=== PATIENT | male | born 1970 | race African-American/Black ===

== ENCOUNTER 2024-02-22 23:26 | Emergency (ER) | payer BC, SELFPAY ==
[2024-02-22 23:46] VITALS: BP 185/121; PULSE 80; RESP 18; TEMP 36.8; O2SAT 96; BMI 35.7
--- NOTE | 2024-02-23 | CRLHL7_ITS ---
For Patients: As a result of the Cures Act, medical imaging exams and procedure reports are released immediately into your electronic medical record. You may view this report before your referring provider. If you have questions, please contact your health care provider. Indication: Left-sided rib pain. Technique: Single PA view of the chest with AP and oblique views of the left ribs. Comparison: Chest x-ray 11/15/2022. Findings: The heart is not abnormally enlarged. The trachea is midline. No confluent airspace opacity. No pleural effusion or pneumothorax. No acute osseous abnormality. No acute rib fracture. Impression: No acute osseous or cardiopulmonary abnormality. Dictated by Nazario Gupta MD @ 02/23/2024 1:12:13 AM (Electronically Signed)
[2024-02-23] MEDS: KETOROLAC 30 MG/ML inj IM (01:04)
--- OUTSIDE RECORDS SUMMARY | 2024-02-23 01:05 | XMS_ITS | Patient Health Record ---
Author Organization [facility] [employer] [employer] [facility] - Primary Address [address] [place] [phone] Care Team Providers Care Entry Level Paralegal Name Role Phone Different, PCP Primary Care Provider Unavailabl e ALLERGIES Allergen (clinical drug ingredient) Drug/Non Drug Allergy documented on EMR Reaction Allergy Type Onset Date Status lisinopril lisinopril coughing Drug Allergy Activ e REASON FOR REFERRAL No Information MEDICATIONS Medication SIG (Take, Route, Fr equency, Duration) Notes Start Date End Date Status Lidocaine Viscous 2% SWISH AND SPIT 10 M L EVERY 4 HOURS NEEDED FOR SORE THROAT for 2 Active spironolactone 25 mg TAKE 1 2 (ONE HALF) TABLET BY MOUTH ONCE DAILY for 30 Active carvedilol 12.5 mg TAKE 1 TABLET BY SIVA TH TWICE DAILY for 30 Active amLODIPine 10 mg 1 tab(s) orally once a day for 30 day(s) Active Mirapex 1.5 mg 1 tab(s) orally 2 at [facility] Active gabapentin 300 mg TAKE 1 CAPSULE BY MO [facility] AT BEDTIME FOR RESTLESS LEGS for 30 Active furosemide 20 mg TAKE 2 TABLETS BY MO UT ONCE DAILY for 30 Active omeprazole 20 mg TAKE 1 CAPSULE BY MO UT ONCE DAILY BEFORE A MEAL for 30 Activ e SOCIAL HISTORY Tobacco Use: Social History Observation Description Date Details (start date - stop date) Current Smoker NA - NA Sex Assigned At : Social History Observation Description Sex Assigned At Unknown Smoking Question Answer Notes Are you a: current smoker How often do you smoke cigarettes? every day How many cigarettes a day do you smoke? 6-10 How soon after you wake up d o you smoke your first cigarette? within 5 min Are you interested in quitting? Thinking about q uitting PROBLEMS Problem Type ICD Code Onset Dates Problem Status W/U Status Risk SNOMED Code Notes Problem Essential (primary) hypertension (I10) Active confirmed Essential hypertension (91744679) Problem Restless legs syndrome (G25.81) Active confirmed Restless l egs syndrome (77862428) Problem Nicotine dependence, cigarettes, uncomplicated (F17.210) Active confirmed Tobacco user (980262147) Problem Chronic pain syndrome (G89.4) Active confirmed Chronic valeriano n syndrome (774073023) PLAN OF TREATMENT No Information Insurance Providers Payer Name Payer Address Payer Phone Subscriber Number Group Number Insured Name Patient Relationship to Insured Coverage Start Date Coverage End Date BCBS BP [place] [address] [address] [place] [address] [id number] [facility] Richard Bonilla Self - patient is the insured MEDICAL (GENERAL) HISTORY Medical History History ICD Code chronic pain Anxiety arthritis RLS Surgical History Surgery Date(Month/Year)
--- OUTSIDE RECORDS SUMMARY | 2024-02-23 01:05 | XMS_ITS | Clinical Summary ---
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 Sumatriptan Rash 10/29/2008 Medications Medication Sig Dispensed Refills Start Date End Date Status gabapentin (NEURONTIN) 600 MG tabletIndications:Res tless legs syndrome Take 0.5 tablets (300 mg total) by mouth 3 (three) times a day 90 tablet 2 12/12/2022 Active Additional Information Patient taking differently: 900 mgOralDaily, Reported on 06/29/2023 amLODIPine (NORVASC) 10 MG tabletIndications:Yogesh ign essential hypertension Take 1 tablet (10 mg total) by mouth 1 (one) time each day 30 tablet 1 06/29/2023 5 Active aspirin 81 MG EC tabletIndications:Car diomyopathy, unspecified type (HCC) Take 1 tablet (81 mg total) by mouth 1 (one) time each day 30 tablet 1 06/29/2023 5 Active atorvastatin (LIPITOR) 40 MG tabletIndications:Car diomyopathy, unspecified type (HCC) Take 1 tablet (40 mg total) by mouth every night 30 tablet 1 06/29/2023 5 Active carvedilol (COREG) 25 MG tabletIndications:Yogesh ign essential hypertension Take 1 tablet (25 mg total) by mouth 2 (two) times a day with meals 60 tablet 1 06/29/2023 5 Active EPINEPHrine (EpiPen 2-Trey) 0.3 MG/0.3ML injection syringeIndications:Hi story of anaphylactic shock due to insect sting Inject 0.3 mL (0.3 mg total) into the thigh if needed for anaphylaxis. Call 911 after use. 2 each 06/29/2023 Active esomeprazole (NexIUM) [address] capsuleIndications:Ga stroesophageal reflux disease, unspecified whether esophagitis present Take 1 capsule (40 mg total) by mouth 1 (one) time each day 30 capsule 1 06/29/2023 5 Active famotidine (PEPCID) 40 MG tabletIndications:Gas troesophageal reflux disease, unspecified whether esophagitis present Take 1 tablet (40 mg total) by mouth 1 (one) time each day 30 tablet 1 06/29/2023 5 Active fexofenadine (DEEPA) 180 MG tabletIndications:All ergic rhinitis, unspecified seasonality, unspecified trigger Take 1 tablet (180 mg total) by mouth 1 (one) time each day 30 tablet 1 06/29/2023 5 Active furosemide (LASIX) 20 MG tabletIndications:Car diomyopathy, unspecified type (HCC) Take 2 tablets (40 mg total) by mouth 1 (one) time each day 60 tablet 1 06/29/2023 5 Active losartan (COZAAR) 25 MG tabletIndications:Yogesh ign essential hypertension Take 1 tablet (25 mg total) by mouth 1 (one) time each day 30 tablet 1 06/29/2023 5 Active Pramipexole Dihydrochloride ER 2.25 MG tablet sustained-release 24 hourIndications:Restl ess legs syndrome Take 2.25 mg by mouth at bed time 30 tablet 1 06/29/2023 5 Active rizatriptan MOTORSPORTS TECHNICIAN (MAXALT-MOTORSPORTS TECHNICIAN) 10 MG dispersible tabletIndications:Sukh madeleine without status migrainosus, not intractable, unspecified migraine type Take 1 tablet (10 mg total) by mouth 1 (one) time if needed for migraine 9 tablet 06/29/2023 Active spironolactone (ALDACTONE) 25 MG tabletIndications:Yogesh ign essential hypertension Take 1 tablet (25 mg total) by mouth 1 (one) time each day 30 tablet 1 06/29/2023 5 Active nicotine polacrilex (Nicorette) 4 MG gumIndications:Nicoti ne abuse Chew 1 each (4 mg total) if needed for smoking cessation Cinnamon 100 each 1 06/29/2023 Active mometasone (NASONEX) 50 MCG/ACT nasal sprayIndications:Jim rgic rhinitis, unspecified seasonality, unspecified trigger Administer 2 sprays into each nostril 1 (one) time each day 17 g 1 07/12/2023 Active albuterol HFA (Ventolin HFA) 108 (90 Base) MCG/ACT inhalerIndications:Al lergic rhinitis, unspecified seasonality, unspecified trigger Inhale 2 puffs every 4 (four) hours if needed for wheezing or shortness of breath 18 g 1 07/12/2023 5 Active Active Problems Problem Noted Date Diagnosed Date Allergic rhinitis 06/29/2023 Gastroesophageal reflux disease 06/29/2023 Gasping for breath 06/29/2023 Snoring 06/29/2023 Encounter for other administrative examinations 06/29/2023 Nicotine abuse 06/29/2023 Routine screening for STI (sexually transmitted infection) 06/29/2023 Immunization due 06/29/2023 Left wrist pain 06/29/2023 Encounter for screening for malignant neoplasm o f colon 06/29/2023 Nonobstructive atherosclerosis of coronary arter y 12/14/2022 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 History reported by patient's significant other - unknown cause - diagnosed at [facility]. HTN (hypertension) 12/14/2010 Migraine headache 12/14/2010 Nephrolithiasis 12/14/2010 Restless legs syndrome 12/14/2010 Resolved Problems Problem Noted Date Diagnosed Date Resolved Date Acute systolic heart failure 06/21/2017 07/18/2021 Immunizations Name Administration Dates Next Due COVID-19, mRNA, LNP-s, PF, caroline-succrose, 30mcg/0.3mL, COMIRNATY Ages 12+ 06/29/2023 H1N1 All Forms 05/31/2009 H1N1 Inj 05/31/2009 INFLUENZA QUADRIVALENT MDV (IM) 06/29/19 24,02/28/2019,06/17/2017,2014 Influenza, Split Virus, Triv alent, Preservative 05/31/2009 Influenza, Trivalent, PF 05/31/2009 Influenza, Unspecified 02/28/2019,06/17/2017, PPD Test 07/18/2021 Pneumococcal Conjugate PCV20 07/18/2023 SARS-COV-2 (COVID-19) vaccin e, vector non-replicating, recombinant spike protein- Ad26, preservative free, 0.5mL (Roll20) 08/11/2020 Td 01/19/2007 Tdap 08/09/2017 Zoster Recombinant 07/18/2023,08/04/2021 Family History Relation Status Comments Brother 1 Brother 2 Brother 3 Daughter 1 Alive Daughter 2 Alive Daughter 3 Alive Daughter 4 Alive Daughter 5 Alive Father Mother Sister 1 Alive Sister 2 Alive Sister 3 Alive Son 1 Alive Son 2 Alive Son 3 Alive Son 4 Alive Social History Tobacco Use Types Packs/Day Years Used Date Smoking Tobacco: Every Day Cigarettes Smokeless Tobacco: Never Tobacco Cessation:Ready to Q uit: Yes; Counseling Given: Yes Alcohol Use Standard Drinks/Week Comments Not Currently 0 (1 standard drink = 0.6 oz pur e alcohol) Humiliation, Afraid, Rape, and Kick questionnair e Answer Date Recorded Within the last year, have y ou been afraid of your partner or ex-partner? No 06/29/2023 Within the last year, have y ou been humiliated or emotionally abused in other ways by your partner or ex-partner? No Within the last year, have y ou been kicked, hit, slapped, or otherwise physically hurt by your partner or ex-partner? No 06/29/2023 Within the last year, have y ou been raped or forced to have any kind of sexual activity by your partner or ex-partner? No 06/29/2023 Social Connection and Isolation Panel [NHANES] A nswer Date Recorded In a typical week, how many times do you talk on the phone with family, friends, or neighbors? Three times a week 06/29/19 How often do you get togethe r with friends or relatives? Once a week 06/29/2023 How often do you attend chur or church services? 1 to 4 times per year 06/29/2023 Do you belong to any clubs o r organizations such as jainism groups, unions, fraternal or athletic groups, or school groups? Yes 06/29/2023 How often do you attend meet ings of the clubs or organizations you belong to? 1 to 4 times per year 06/29/2023 Are you , , di vorced, , never , or living with a partner? Living with partner 06/29/2023 AUDIT-C Answer Date Recorded Q1: How often do you have a drink containing alc ohol? Monthly or less 06/29/2023 Q2: How many drinks containi ng alcohol do you have on a typical day when you are drinking? 1 or 2 06/29/2023 Q3: How often do you have si x or more drinks on one occasion? Never 06/29/2023 Overall Financial Resource Strain (CARDIA) Answe r Date Recorded How hard is it for you to pa y for the very basics like food, housing, medical care, and heating? Somewhat hard 06/29/2023 PHQ-2 Answer Date Recorded PHQ-9 Total Score 7 06/29/2023 [facility] [place] [facility] Occup[facility] - Occupational Stress Questionnaire Answer Date Recorded Do you feel stress - tense, restless, nervous, or anxious, or unable to sleep at night because your mind is troubled all the time - these days? Rather much 06/29/2023 Exercise Vital Sign Answer Date Recorde d On average, how many days pe r week do you engage in moderate to strenuous exercise (like a brisk walk)? 4 days 06/29/2023 On average, how many minutes do you engage in exercise at this level? 60 min 06/29/2023 Hunger Vital Sign Answer Date Recorded Within the past 12 months, y ou worried that your food would run out before you got the money to buy more. Sometimes true Within the past 12 months, t he food you bought just didn't last and you didn't have money to get more. Often true 01/2024 PRAPARE - Transportation Answer Date Re corded In the past 12 months, has l ack of transportation kept you from medical appointments or from getting medications? No 01/2024 In the past 12 months, has l ack of transportation kept you from meetings, work, or from getting things needed for daily living? Yes 06/29/2023 Housing Stability Vital Sign Answer Javad e Recorded In the last 12 months, was t here a time when you were not able to pay the mortgage or rent on time? Yes 06/29/19 24 In the last 12 months, how many places have you lived? 1 06/29/2023 In the last 12 months, was t here a time when you did not have a steady place to sleep or slept in a longterm (including now)? Patient declined 06/29/2023 Sex and Gender Information Value Date Recorded Sex Assigned at Not on file Gender Identity Not on file Sexual Orientation Not on file Last Filed Vital Signs Vital Sign Reading Time Taken Comments Blood Pressure 120/74 06/29/2023 3:41 PM [employer]UNITY [employer] Pulse 81 06/29/2023 2:59 PM [employer] Temperature 36.8 ??C (98.3 ??F) 06/29/2023 2:59 PM CS T Respiratory Rate 16 06/29/2023 2:59 PM [employer] Oxygen Saturation 97% 06/29/2023 2:59 PM [employer] Inhaled Oxygen Concentration - - Weight 105 kg (231 lb) 06/29/2023 2:59 PM [employer] Height 175 cm (5' 8.9) 06/29/2023 2:59 PM [employer] Body Mass Index 34.21 06/29/2023 2:59 PM [employer] Plan of Treatment Health Maintenance Due Date Last Done Comments CT Colonography 1968 Colonoscopy 1968 Colorectal Cancer Screening 1968 FIT-DNA 1968 Sigmoidoscopy 1968 iFOBT 1968 COVID-19 Vaccine (4 - 2024-25 season) 2024 06/29/2023, 05/26/2021, 08/11/2020 Influenza Vaccine (#1) 2024 , 02/28/2019, 02/28/2019, Additional history exists DTaP,Tdap,and Td Vaccines (2 - Td or Tdap) 08/10/2027 08/09/2017, 01/19/2007 Pneumococcal Vaccine: Pediatrics (0 to 5 Years) and At-Risk Patients (6 to 64 Years) Completed 07/18/2023 Zoster Vaccines Completed 07/18/2023, 08/04/2021 HPV Vaccines Aged Out No longer eligi ble based on patient's age to complete this topic Care Teams Supervisor Pipe Manufacture Relationship Specialty Start Date End Date Freddy Hancock PA PCP - General Family Medicine 08/05/21
--- OUTSIDE RECORDS SUMMARY | 2024-02-23 01:06 | XMS_ITS | Clinical Summary ---
Author Organization [facility] Address [address] [place] [address] Care Team Providers Care Application Integrator Name Role Phone Elsewhere, Pcp Primary Care Provider Unavailabl e Source Comments Patient records contain information from all sites at [facility]. For routine questions regarding patient records, call [phone] during business hours, M-F 8:00 AM - 5:00 PM Central Time. Record requests for emergency care only can be directed to [phone] at any time.[facility] Allergies Active Allergy Reactions Criticality Noted Date Comments Lisinopril Cough 10/10/2017 Mixed Vespid Venom Other (see comments) 017 Sumatriptan Other (see comments),Rash 09/16/2006 PN: LW Reaction: Vasodilation Hot flashes Venom-Honey Bee Swelling,Other (see comments) 12/16/2009 Bees and wasps Medications Medication Sig Dispensed Refills Start Date End Date Status aspirin [address] tablet Take 1 tablet by mouth daily. 06/21/2017 Active atorvastatin (LIPITOR) 40 mg tablet Take 40 mg by mouth. 05/02/2021 Active clindamycin (CLEOCIN T) 1 % external solution Apply topically. 07/13/2021 Active famotidine (PEPCID) 40 mg tablet Take 40 mg by mouth. 09/05/2022 Active fexofenadine (DEEPA) 180 mg tablet Take 180 mg by mouth. 09/05/2022 Active furosemide (LASIX) 20 mg tablet Take 40 mg by mouth. 06/20/2017 Active gabapentin (NEURONTIN) 300 mg capsule Take 900 mg by mouth. 09/05/2022 Active losartan (COZAAR) 25 mg tablet Take 1 tablet by mouth daily. 05/02/2021 Active pramipexole (MIRAPEX) 0.125 mg tablet Take 0.25 mg by mouth. Active spironolactone (ALDACTONE) 25 mg tablet Take 1 tablet by mouth daily. 06/21/2017 Active rizatriptan CREATIVE SERVICES MANAGER (MAXALT-CREATIVE SERVICES MANAGER) 10 mg disintegrating tablet Dissolve 10 mg in the mouth 2 (two) times a day as needed. 09/05/2022 Active tadalafiL (CIALIS) 10 mg tablet Take 10 mg by mouth at bedtime as needed. 10/10/2022 Active carvediloL (COREG) 25 mg tablet Take 1 tablet (25 mg total) by mouth 2 (two) times a day with meals. 60 tablet 12/07/2022 Active Active Problems Problem Noted Date Diagnosed Date Dyslipidemia 09/10/2022 Gastroesophageal Reflux Disease NOS 09/10/2022 PreDiabetes 09/10/2022 Asthma Mild Intermittent 05/26/2021 Atherosclerotic Heart Diseas e [place] Coronary Artery Without Angina Pectoris 08/09/2017 Hypertension Pulmonary 08/09/2017 Nonrheumatic Mitral Valve Insufficiency 08/10/19 18 Regurgitation Tricuspid Rheumatic 08/09/2017 Acute Systolic (Congestive) Heart Failure 2017 Hypertension Essential Primary 06/21/2017 Shortness Of Breath 06/16/2017 Cardiomyopathy 04/03/2017 Overview (12/07/2022): History reported by patient's significant other - unknown cause - [place] at [facility] [place] History reported by patient's significant other - unknown cause - diagnosed at [facility] [place]. History reported by patient's significant other - unknown cause - diagnosed at [facility] [place]. History reported by patient's significant other - unknown cause - diagnosed at [facility] [place]. Migraine Headache 12/14/2010 Nephrolithiasis 12/14/2010 Restless Leg Syndrome 12/14/2010 Immunizations Name Administration Dates Next Due H1N1 All Forms 05/31/2009 H1N1 Inj 05/31/2009 Influenza TIV (IM) 05/31/2009 Influenza, Injectable, Quadrivalent 02/28/2019,0 06/17/2017,03/02/2015 Influenza, Unspecified 02/28/2019,06/17/2017 PPD Test 07/18/2021 RZV (SHINGRIX) 08/04/2021 SARS-COV-2 (COVID-19) - MARLEN ONOFRE (J&J)(Discontinued) 08/11/2020 Tdap 08/09/2017 influenza trivalent vaccine (6 months and older)(PF) 05/31/2009 Social History Tobacco Use Types Packs/Day Years Used Date Smoking Tobacco: Some Days Cigarettes Tobacco Cessation:Ready to Q uit: Not Asked; Counseling Given: Not Answered Alcohol Use Standard Drinks/Week Comments Not Currently 0 (1 standard drink = 0.6 oz pur e alcohol) Nutrition Answer Date Recorded Nutrition: EVOO Fat Source Unknown 12/07 Nutrition: Servings of Fruits/Vegetables per Day Not on file 12/07/2022 Dental Answer Date Recorded Dental: Regular Dentist Unknown 12/08/19 Sex and Gender Information Value Date Recorded Sex Assigned at Not on file Gender Identity Not on file Sexual Orientation Not on file Last Filed Vital Signs Vital Sign Reading Time Taken Comments Blood Pressure 145/91 12/07/2022 1:00 PM CDT Pulse 76 12/07/2022 1:00 PM CDT Temperature 36.6 ??C (97.9 ??F) 12/07/2022 9:51 AM CD T Respiratory Rate 23 12/07/2022 1:00 PM CDT Oxygen Saturation 95% 12/07/2022 1:00 PM CDT Inhaled Oxygen Concentration - - Weight 104 kg (230 lb 2.6 oz) 12/07/2022 9:51 AM CDT Height - - Body Mass Index - - Plan of Treatment Health Maintenance Due Date Last Done Comments CT Colonography 1968 Cologuard 1968 Colonoscopy 1968 Colorectal Cancer Screening 1968 FIT 1968 HIV Screening 1968 Hepatitis C Screening 1968 Office Visit for Blood Press ure Check / Re-check 1968 Pneumococcal vaccine (0-64 y ears) (1 of 2 - PCV) 1974 Hepatitis B Vaccines (1 of 3 - 19+ 3-dose series) 10/25/1987 Depression Screening (Annual PHQ-2) 05/21/2023 Fasting Glucose for Diabetes Screening 12/08/2023 12/07/2022, 11/15/2022, 09/05/2022, Additional history exists Creatinine Level (Kidney Fun ction Test) 12/13/2023 12/12/2022, 12/07/2022, 11/15/2022, Additional history exists Potassium Level 12/13/2023 12/12/2022, 07/2 , 11/15/2022, Additional history exists Sodium Level 12/13/2023 12/12/2022, 07/2 , 11/15/2022, Additional history exists COVID-19 Vaccine (2023-2 5 season) 2024 06/29/2023, 05/26/2021, 08/11/2020 Influenza Vaccine (#1) 2024 , 02/28/2019, 02/28/2019, Additional history exists Tobacco Cessation counseling 06/29/2024 06/29/2023 DTaP,Tdap,and Td Vaccines (2 - Td or Tdap) 08/10/2027 08/09/2017 Lipid (Cholesterol) Screening 09/06/2027, 05/02/2021, 01/28/2020 Zoster Vaccines Completed 07/18/2023, 08/04/2021 Procedures Procedure Name Priority Date/Time Associated Diagnosis Comments BASIC METABOLIC PANEL, S/P STAT 12/07/2022 10:13 AM CDT from Last 3 Months or Most Recently Relevant to Health Maintenance Results * Basic Metabolic Panel (12/07/2022 10:13 AM CDT) Potassium, P 4.3 3.6 - 5.2 mmol/L 12/07/2022 10:46 AM CDT [facility] Sodium, P 136 135 - 145 mmol/L 12/07/2022 10:46 AM CDT [facility] Chloride, P 101 98 - 107 mmol/L 12/07/2022 10:46 AM CDT [facility] Bicarbonate, P 24 22 - 29 mmol/L 12/07/2022 10:46 AM CDT [facility] Anion Gap, P 11 7 - 15 12/07/2022 10:46 AM CDT [facility] BUN (Blood Urea Nitrogen), P 10 8 - 24 mg/dL 12/07/2022 10:46 AM CDT [facility] Creatinine 1.07 0.74 - 1.35 mg/dL 12/07/2022 10:46 AM CDT [facility] Estimated GFR (eGFR) 82 >=60 mL/min/BSA 12/07/2022 10:46 AM CDT [facility] Comment: Estimated GFR calculated using the 2020 CKD_EPI creatinine equation. Calcium, Total, P 9.4 8.6 - 10.0 mg/dL 12/07/2022 10:46 AM CDT [facility] Glucose, P 117 70 - 140 mg/dL 12/07/2022 10:46 AM CDT [facility] Blood (Blood, Venous) 12/07/2022 10:13 AM CDT 12/07/2022 10:18 AM CDT James Crystal APRN.N.P., D.N.P. LAB BLOOD ADD-ON [facility] [address] [place] [id number], [facility] in [address] [address] from Last 3 Months or Most Recently Relevant to Health Maintenance Care Teams Application Integrator Relationship Specialty Start Date End Date Elsewhere, Pcp PCP - General Internal Medicine 12/07/22
--- OUTSIDE RECORDS SUMMARY | 2024-02-23 01:06 | XMS_ITS ---
Author Organization [facility] Address [address] [place] [address] Care Team Providers Care Flexible Babysitter Name Role Phone Unavailable Unavailable Unavailable Surgery Details Not on file Complications Check Surgery Details section. Procedure Estimated Blood Loss Check Surgery Details section. Procedure Findings Check Surgery Details section. Procedure Specimens Taken Check Surgery Details section.
--- OUTSIDE RECORDS SUMMARY | 2024-02-23 01:06 | XMS_ITS | Referral Summary ---
Author Organization [facility] Address [address] [place] [address] Care Team Providers Care Passenger Car Inspector Name Role Phone Elsewhere, Pcp Primary Care Provider Unavailabl e Source Comments Patient records contain information from all sites at [facility]. For routine questions regarding patient records, call [phone] during business hours, M-F 8:00 AM - 5:00 PM Central Time. Record requests for emergency care only can be directed to [phone] at any time.[facility] Allergies Active Allergy Reactions Criticality Noted Date [...] tablet by mouth daily. 06/21/2017 Active rizatriptan MARITIME ENGINEER (MAXALT-MARITIME ENGINEER) 10 mg disintegrating tablet Dissolve 10 mg [...] Intermittent 05/26/2021 Atherosclerotic Heart Diseas e Of [place] Coronary Artery Without Angina Pectoris 08/09/2017 Hypertension Pulmonary 08/09/2017 Nonrheumatic Mitral Valve Insufficiency 08/10/19 18 Regurgitation Tricuspid Rheumatic 08/09/2017 Acute Systolic (Congestive) Heart Failure 2017 Hypertension Essential Primary 06/21/2017 Shortness Of Breath 06/16/2017 Cardiomyopathy 04/03/2017 Overview (12/07/2022): History reported by patient's significant other - unknown cause - [place] [facility] [place] History reported by patient's significant other - unknown cause - diagnosed at [facility] [place] History reported by patient's significant other - unknown cause - diagnosed at [facility] [place] History reported by patient's significant other - unknown cause - diagnosed at [facility] [place]. Migraine Headache 12/14/2010 Nephrolithiasis 12/14/2010 Restless Leg Syndrome 12/14/2010 Immunizations Name Administration Dates Next Due H1N1 All Forms 05/31/2009 H1N1 Inj 05/31/2009 Influenza TIV (IM) 05/31/2009 Influenza, Injectable, Quadrivalent 02/28/2019,0 06/17/2017,03/02/2015 Influenza, Unspecified 02/28/2019,06/17/2017 PPD Test 07/18/2021 RZV (SHINGRIX) 08/04/2021 SARS-COV-2 (COVID-19) - JANS KINGSTON (J&J)(Discontinued) 08/11/2020 Tdap 08/09/2017 influenza trivalent vaccine [...] Mass Index - - Plan of Treatment Not on file Procedures Procedure Name Priority Date/Time Associated Diagnosis Comments BASIC METABOLIC PANEL, S/P STAT 12/07/2022 10:13 AM CDT from Last 3 Months or Most Recently Relevant to Health Maintenance Results * Basic Metabolic Panel (12/07/2022 10:13 AM CDT) Pathologist [facility] Potassium, P 4.3 3.6 - 5.2 mmol/L [...] 10:13 AM CDT 12/07/2022 10:18 AM CDT Jean Castañeda APRN C.N.P., D.N.P. LAB BLOOD ADD-ON [facility] [address] [place] [id number], [facility] in [address] [address] from Last 3 Months or Most Recently Relevant to Health Maintenance Care Teams Passenger Car Inspector Relationship Specialty Start Date End Date Elsewhere, Pcp PCP - General Internal Medicine 12/07/22
--- NOTE | 2024-02-23 01:10 | ED.GENADULT ---
HPI - General Adult General Date Seen: 02/23/24 Chief complaint: Rib Pain Stated complaint: cough, painful breathing Time Seen by Provider: 02/22/24 23:53 Source: patient Mode of arrival: ambulatory Limitations: no limitations History of Present Illness HPI narrative: Patient is a 53-year-old male presenting with left lower anterior rib pain. He states this rib pain started 1 week ago while he was having a coughing fit. States he is having no pain prior to this coughing fit and then he started coughing and now he is having pain. States now he is only having pain whenever he takes a deep breath coughs or sneeze. Has not had further coughing fits since then though. Has been taking ibuprofen home for pain with minimal improvement. Denies shortness of breath. He denies lightheadedness, dizziness, weakness, numbness, abdominal pain, nausea/vomiting, decreased oral intake, vision changes. No other concerns noted at this time Related Data Home Medications ?Medication ?Instructions ?Recorded ?Confirmed amlodipine 10 mg tablet 10 mg PO DAILY 02/22/24 02/22/24 atorvastatin 40 mg tablet 40 mg PO DAILY 02/22/24 02/22/24 carvedilol 12.5 mg tablet 12.5 mg PO BID 02/22/24 02/22/24 esomeprazole magnesium 40 mg 40 mg PO DAILY 02/22/24 02/22/24 capsule,delayed release famotidine 40 mg tablet 40 mg PO DAILY 02/22/24 02/22/24 fluoxetine 40 mg capsule mg PO 02/22/24 furosemide 20 mg tablet 20 mg PO DAILY 02/22/24 02/22/24 hydroxyzine HCl 50 mg tablet 50 mg PO BID 02/22/24 02/22/24 spironolactone 25 mg tablet 25 mg PO DAILY 02/22/24 02/22/24 Allergies Allergy/AdvReac Type Severity Reaction Status Date / Time bee venom protein (honey bee) Allergy Verified 02/22/24 23:51 spider venom Allergy Verified 02/22/24 23:51 sumatriptan Allergy Verified 02/22/24 23:51 Review of Systems Status of ROS: Reports: 10 or more systems reviewed and unremarkable except as noted in History and below Exam Narrative: Exam Narrative: Const: Well-nourished, Well-developed, in mild distress Eyes: PERRL, no conjunctival injection, and symmetrical lids HENT: Atraumatic external nose and ears. Moist mucous membranes. Neck: Symmetric, trachea midline, No thyromegaly. CVS: RRR, No murmurs or gallops. Peripheral pulses 2+ and equal in all extremities RESP: Unlabored respiratory effort. Clear to auscultation bilaterally. GI: Nontender/Nondistended, No rebound or guarding. MSK:Extremities w/o deformity, Normal Active ROM, tenderness to the anterior left lower ribs with that is reproducible with palpation Skin: Warm, Dry. No rashes or lesions. Neuro: Normal Muscle tone, No focal neurological deficits. Psych: Awake, Alert, & Oriented x3. Appropriate mood and affect. Const: Vital Signs, click to edit/add: Vital Signs - 24 hr 02/22/24 23:46 Temperature 98.2 F Pulse Rate [Pulse Oximeter] 80 Respiratory Rate 18 Blood Pressure [Ri ght Upper Arm] 185/121 H Pulse Oximetry 96 Oxygen Delivery Me thod Room Air Course Vital Signs Vital signs: Initial Vital Signs Temperature 98.2 F 02/22/24 23:46 Temperature Source Temporal Artery Scan 02/22/24 23:46 Pulse Rate 80 02/22/24 23:46 Pulse Rhythm Regular 02/22/24 23:46 Pulse Strength 3+ Normal 02/22/24 23:46 Respiratory Rate 18 02/22/24 23:46 Blood Pressure 185/121 H 02/22/24 23:46 Blood Pressure Mean 142 H 02/22/24 23:46 Blood Pressure Position Sitting 02/22/24 23:46 Pulse Oximetry 96 02/22/24 23:46 Oxygen Delivery Method Room Air 02/22/24 23:46 Vital Signs Temperature 98.2 F 02/22/24 23:46 Pulse Rate 80 02/22/24 23:46 Respiratory Rate 18 02/22/24 23:46 Blood Pressure 185/121 H 02/22/24 23:46 Pulse Oximetry 96 02/22/24 23:46 Oxygen Delivery Method Room Air 02/22/24 23:46 Temperature 98.2 F 02/22/24 23:46 Pulse Rate 80 02/22/24 23:46 Respiratory Rate 18 02/22/24 23:46 Blood Pressure 185/121 H 02/22/24 23:46 Pulse Oximetry 96 02/22/24 23:46 Oxygen Delivery Method Room Air 02/22/24 23:46 Medications Administered Medications: Generic Name Dose Route Start Last Admin Trade Name Angelo PRN Reason Stop Dose Admin Ketorolac Tromethamine 30 mg 02/23/24 00:58 02/23/24 01:04 Ketorolac 30 Mg/Ml Inj IM 02/23/24 00:59 30 mg ONCE ONE Administration Medical Decision Making MDM Narrative Medical decision making narrative: Patient is a 53-year-old male presenting to emergency department for chest pain. This seems to be musculoskeletal in nature. The differential diagnosis of chest pain is broad and includes common etiologies such as musculoskeletal strain, GERD, pneumonia, etc. More serious etiologies considered include PE, coronary artery disease, pneumothorax, aortic dissection, aortic aneurysm. At this time considering the symptoms occurred directly when he started having a coughing fit with no symptoms prior to that and the pain is exactly reproducible with palpation this seems her likely musculoskeletal in nature. Will do a chest x-ray. He is having no midsternal chest pain and no shortness of breath and I do not believe this is ACS of all at this time. PE, pneumothorax, aortic dissection, aortic aneurysm also seemed very unlikely. I will give him Toradol for pain. Is agreeable to this. Chest x-ray reviewed by myself diarrhea order shows no concerning abnormalities. This is in my opinion is musculoskeletal strain and will be discharged with Toradol via instymeds. He is agreeable to this plan. Imaging Data Ribs x-ray: Attestation: I have reviewed the pertinent imaging results. Radiologist's impression: No acute osseous or cardiopulmonary abnormality. Dictated by Nazario Gupta MD @ 02/23/2024 1:12:13 AM Discharge Plan Discharge Clinical Impression: Chest wall muscle strain Qualifiers: Encounter type: initial encounter Qualified Code(s): S29.011A - Strain of muscle and tendon of front wall of thorax, initial encounter Patient Disposition: Home, Self-Care Condition: Stable Instructions: Chest Wall Pain (ED) Additional Instructions: I believe he is holding muscle in your chest. This will continue to be painful while it slowly heels. Recommend use the Toradol as directed and when you renal Toradol again start taking ibuprofen or naproxen. Also recommend taking Tylenol. While taking the Toradol do not use other NSAIDs such as ibuprofen or naproxen as they are the same class of drugs. Prescriptions: No Action fluoxetine 40 mg capsule PO atorvastatin 40 mg tablet 40 mg PO DAILY carvedilol 12.5 mg tablet 12.5 mg PO BID famotidine 40 mg tablet 40 mg PO DAILY hydroxyzine HCl 50 mg tablet 50 mg PO BID spironolactone 25 mg tablet 25 mg PO DAILY amlodipine 10 mg tablet 10 mg PO DAILY esomeprazole magnesium 40 mg capsule,delayed release(DR/EC) 40 mg PO DAILY furosemide 20 mg tablet 20 mg PO DAILY Follow Up/Referrals: Provider,Not a Local [Primary Care Provider] - Stand Alone Forms: ROBLOXth Info Instructions
== END 2024-02-23 01:23 | disposition home or self-care (01) ==
PROVIDERS: Emergency Provider Student in an Organized Health Care Education/Training Program
DX: S29.011A Strain of muscle and tendon of front wall of thorax, initial encounter (principal)
CPT/HCPCS: 71101; 96372; 99282; 99283; J1885

== ENCOUNTER 2024-04-26 08:30 | Emergency (ER) | payer BC, SELFPAY ==
[2024-04-26] VITALS (16 sets, daily range): BP systolic 155–191; BP diastolic 110–131; PULSE 63–96; RESP 18–25; TEMP 36.3; O2SAT 94–98; BMI 34.3
--- NOTE | 2024-04-26 08:56 | CRLHL7_ITS ---
For Patients: As a result of the Century Cures Act, medical imaging exams and procedure reports are released immediately into your electronic medical record. You may view this report before your referring provider. If you have questions, please contact your health care provider. INDICATION: Short of breath TECHNIQUE: 1 view chest radiograph COMPARISON: 02/23/2024 FINDINGS: Devices: None. Lung volumes are good. Multifocal reticulonodular basilar opacities. No large discrete consolidation. No pleural effusion. No pneumothorax. Heart size is normal. IMPRESSION: Appearance suggests infectious or inflammatory airways disease. Dictated by Xuan Little MD @ 04/26/2024 9:28:16 AM (Electronically Signed)
--- OUTSIDE RECORDS SUMMARY | 2024-04-26 09:17 | XMS_ITS | Patient Health Record ---
Author Organization [facility] [employer] - Primary Address [address] [place] [id number] Care Team Providers Care Antiquer Name Role Phone Different, PCP Primary Care [...] 300 mg TAKE 1 CAPSULE BY [facility] AT BEDTIME FOR RESTLESS LEGS for 30 [...] (primary) hypertension (I10) Active confirmed Essential hypertension (99338408) Problem Restless legs syndrome (G25.81) Active confirmed Restless l egs syndrome (88999082) Problem Nicotine dependence, cigarettes, uncomplicated (F17.210) Active confirmed Tobacco user (519726360) Problem Chronic pain syndrome (G89.4) Active confirmed Chronic valeriano n syndrome (477015194) PLAN OF TREATMENT No Information Insurance Providers Payer Name Payer Address Payer Phone Subscriber Number Group Number Insured Name Patient Relationship to Insured Coverage Start Date Coverage End Date BCBS [place] [address] [address] [place] [address] [id number] [facility] Bonilla Self - patient is the insured MEDICAL (GENERAL) HISTORY Medical History History ICD Code chronic pain Anxiety arthritis RLS Surgical History Surgery Date(Month/Year)
--- OUTSIDE RECORDS SUMMARY | 2024-04-26 09:17 | XMS_ITS ---
Author Organization [facility] Address [address] [place] [address] Care Team Providers Care Section Repairer Name Role Phone Unavailable Unavailable Unavailable Surgery Details Not on file Complications Check Surgery Details section. Procedure Estimated Blood Loss Check Surgery Details section. Procedure Findings Check Surgery Details section. Procedure Specimens Taken Check Surgery Details section.
--- OUTSIDE RECORDS SUMMARY | 2024-04-26 09:17 | XMS_ITS | Clinical Summary ---
Author Organization [facility] Address [address] [place] [address] Care Team Providers Care Oven Operator Name Role Phone Elsewhere, Pcp Primary Care Provider Unavailabl e Source Comments Patient records contain information from all sites at [facility]. For routine questions regarding patient records, call [phone] during business hours, M-F 8:00 AM - 5:00 PM Central Time. Record requests for emergency care only can be directed to [phone] at any time.[facility] Allergies Active Allergy Reactions Criticality Noted Date Comments Lisinopril Cough 10/10/2017 Mixed Vespid Venom Other (see comments) 017 Sumatriptan Other (see comments),Rash 09/16/2006 PN: LW Reaction: Vasodilation Hot flashes Venom-Honey Bee Swelling,Other (see comments) 12/16/2009 Bees and wasps Medications aspirin [address] tablet Take 1 tablet by mouth daily. 8 Active atorvastatin (LIPITOR) 40 mg tablet Take 40 mg by mouth. 1 Active clindamycin (CLEOCIN T) 1 % external solution Apply topically. 2 Active famotidine (PEPCID) 40 mg tablet Take 40 mg by mouth. 3 Active fexofenadine (DEEPA) 180 mg tablet Take 180 mg by mouth. 3 Active furosemide (LASIX) 20 mg tablet Take 40 mg by mouth. 8 Active gabapentin (NEURONTIN) 300 mg capsule Take 900 mg by mouth. 3 Active losartan (COZAAR) 25 mg tablet Take 1 tablet by mouth daily. 1 Active pramipexole (MIRAPEX) 0.125 mg tablet Take 0.25 mg by mouth. Active spironolactone (ALDACTONE) 25 mg tablet Take 1 tablet by mouth daily. 8 Active rizatriptan ELECTRONICS SCALE TESTER (MAXALT-ELECTRONICS SCALE TESTER) 10 mg disintegrating tablet Dissolve 10 mg in the mouth 2 (two) times a day as needed. 3 Active tadalafiL (CIALIS) 10 mg tablet Take 10 mg by mouth at bedtime as needed. 3 Active carvediloL (COREG) 25 mg tablet Take 1 tablet (25 mg total) by mouth 2 (two) times a day with meals. 60 tablet 3 Active Active Problems Problem Noted Date Diagnosed Date Dyslipidemia 09/10/2022 Gastroesophageal Reflux Disease NOS 09/10/2022 PreDiabetes 09/10/2022 Asthma Mild Intermittent 05/26/2021 Atherosclerotic Heart Diseas e Of [place] Coronary Artery Without Angina Pectoris 08/09/2017 Hypertension Pulmonary 08/09/2017 Nonrheumatic Mitral Valve Insufficiency 08/10/19 18 Regurgitation Tricuspid Rheumatic 08/09/2017 Acute Systolic (Congestive) Heart Failure 2017 Hypertension Essential Primary 06/21/2017 Shortness Of Breath 06/16/2017 Cardiomyopathy 04/03/2017 Overview (12/07/2022): History reported by patient's significant other - unknown cause - [place] [facility] [place] History reported by patient's significant other - unknown cause - diagnosed [place] [facility] [place] History reported by patient's significant other - unknown cause - diagnosed at [facility] [place] History reported by patient's significant other - unknown cause - diagnosed at [facility] [place]. Migraine Headache 12/14/2010 Nephrolithiasis 12/14/2010 Restless Leg [...] Recorded Sex Assigned at Not on file Legal Sex Male 9:42 AM CDT Gender Identity Not on file Sexual Orientation Not on file Last Filed Vital Signs Vital Sign Reading Time Taken Comments Blood Pressure 145/91 12/07/2022 1:00 PM CDT Pulse 76 12/07/2022 1:00 PM CDT Temperature 36.6 C (97.9 F) 12/07/2022 9:51 AM CDT Respiratory Rate 23 12/07/2022 1:00 PM CDT [...] C Screening 1968 Office Visit for Blood Pressure Check / Re-check 1968 Pneumococcal vaccine (0-64 years) (1 of 2 - PCV) 1974 Hepatitis B Vaccines (1 of 3 - 19+ 3-dose series) 10/25/1987 Depression Screening (Annual PHQ-2) 05/21/2023 Fasting Glucose for Diabetes Screening 12/08/2023 12/07/2022, 11/15/2022, 09/05/2022, Additional history exists Creatinine Level (Kidney Function Test) 12/13/2023 12/12/2022, 12/07/2022, 11/15/2022, Additional history exists Potassium Level 12/13/2023 12/12/2022, 07/2 , 11/15/2022, Additional history exists Sodium Level 12/13/2023 12/12/2022, 07/2 , 11/15/2022, Additional history exists COVID-19 Vaccine ( season) 2024 06/29/2023, 05/26/2021, 08/11/2020 Influenza Vaccine (#1) 2024 , 02/28/2019, 02/28/2019, Additional history exists Tobacco Cessation counseling 06/29/2024 06/29/2023 DTaP,Tdap,and Td Vaccines (2 - Td or Tdap) 08/10/2027 08/09/2017 Lipid (Cholesterol) Screening 09/06/2027 09/05/2022, 05/02/2021, 01/28/2020 Zoster Vaccines Completed 07/18/2023, 08/04/2021 IPV Vaccines Aged Out No longer eligi ble based on patient's age to complete this topic Procedures Procedure Name Priority Date/Time Associated Diagnosis [...] CDT 12/07/2022 10:18 AM CDT Jean Castañeda APRN, C.N.P., D.N.P. LAB BLOOD AD D-ON Final Result [facility] [address] [place] [id number], [facility] in [address] [id number] from Last 3 Months or Most Recently Relevant to Health Maintenance Insurance [address] DORITA Garcia [id number] [place] MEDICAID Care Teams Oven Operator Relationship Specialty Start Date End Date Elsewhere, Pcp PCP - General Internal Medicine 12/07/22
--- OUTSIDE RECORDS SUMMARY | 2024-04-26 09:17 | XMS_ITS | Clinical Summary ---
Author Organization [employer] [facility] Address [place], [place] [address] Care Team Providers Care Marshmallow Machine Worker Name Role Phone AvelinoSam Bassam HARMAN Unavailable [phone] Jose Marie Unavailable Unavailable Elinor Nguyen MD Primary Care Prov ider Allergies Active Allergy Reactions Criticality Noted Date Comments Sumatriptan Rash 10/29/2008 Lisinopril Cough 10/10/2017 Mixed Vespid Venom *Unknown 03/05/2017 Venom-Honey Bee Throat Swelling/Closing 010 Bees and wasps Medications NebulizerIndicati ons:Mild intermittent asthma without complication Nebulizer, disposable neb kit x 4, reuseable neb kit x 1, mask x 1, filters x 1. Medication: albuterol Length of need: 99 months 1 Device 08/14/19 18 Active Blood Pressure Test Kit-Large kit Check blood pressure a few times per week. Diagnosis: 110 - Hypertension 1 Each 9 11:27 AM CDT 02/05/20 19 Active clindamycin phosphate 1% topical 1 % external solutionIndicatio ns:Pseudofollicul itis barbae Apply topically to affected area(s) two times daily. 180 mL 2 09/06/19 23 Active nebulizer accessories misc miscIndications:M ild intermittent asthma without complication As directed. 1 Each 11/17/19 23 Active albuterol 0.083% (2.5 mg/3 mL) neb solutionIndicatio ns:Mild intermittent asthma without complication Inhale 3 mL (2.5 mg) via a nebulizer every 4 hours if needed for Shortness Of Breath or Wheezing. 100 Each 11/05/19 24 Active Ventolin HFA 90 mcg/actuation inhalerIndication s:Bronchospasm Inhale 1-2 Puffs by mouth every 4 hours while awake. 18 g 11/05/19 24 Active amLODIPine (NORVASC) 10 mg tabletIndications :HTN (hypertension) Take 1 Tablet (10 mg) by mouth once daily. 90 Tablet 3 11/05/19 24 Active aspirin (ECOTRIN) 81 mg enteric coated tabletIndications :Pain Take 1 Tablet (81 mg) by mouth once daily. 90 Tablet 3 11/05/19 24 Active busPIRone (BUSPAR) 30 mg tabletIndications :PTSD (post-traumatic stress disorder) Take 1 Tablet (30 mg) by mouth two times daily. 180 Tablet 3 11/05/19 24 Active carvediloL (COREG) 12.5 mg tabletIndications :Nonischemic cardiomyopathy (HC),Chronic systolic congestive heart failure (HC) Take 1 Tablet (12.5 mg) by mouth two times daily. 180 Tablet 3 11/05/19 24 Active esomeprazole (NEXIUM) 40 mg capsuleIndication s:Epigastric pain,Chronic GERD Take 1 Capsule (40 mg) by mouth once daily before a meal. 90 Capsule 3 11/05/19 24 Active famotidine (PEPCID) 40 mg tabletIndications :Chronic GERD Take 1 Tablet (40 mg) by mouth once daily. 90 Tablet 3 11/05/19 24 Active fexofenadine (DEEPA) 180 mg tabletIndications :Environmental allergies Take 180 mg by mouth once daily if needed for Allergy Symptoms. Do not crush or chew. 90 Tablet 1 11/05/19 24 Active FLUoxetine (PROZAC) 40 mg capsuleIndication s:Depression, recurrent (HC),PTSD (post-traumatic stress disorder) Take 2 Capsules (80 mg) by mouth once daily in the morning. 180 Capsule 3 11/05/19 24 Active furosemide (LASIX) 20 mg tabletIndications :Nonischemic cardiomyopathy (HC),Chronic systolic congestive heart failure (HC) Take 1 Tablet (20 mg) by mouth once daily in the morning. 90 Tablet 3 11/05/19 24 Active gabapentin (NEURONTIN) 300 mg capsuleIndication s:Restless legs syndrome (RLS) Take 1 Capsule (300 mg) by mouth three times daily. 270 Capsule 3 20 24 Active hydrOXYzine HCL (ATARAX) 50 mg tabletIndications :PTSD (post-traumatic stress disorder) Take 1 tablet at bedtime every day 90 Tablet 11/05/19 24 Active lamoTRIgine (LAMICTAL) 25 mg tabletIndications :Depression, recurrent (HC) Take 1 Tablet (25 mg) by mouth once daily. 90 Tablet 3 11/05/19 24 Active mometasone (NASONEX) (50 mcg each actuation) nasal sprayIndications: Environmental allergies Inhale 2 Sprays to both nostrils once daily. 17 g 12 11/05/19 24 Active polyethylene glycoL (MIRALAX) 17 gram/scoop powderIndications :Constipation, unspecified constipation type Mix 1 scoop (17 g) in liquid then take by mouth once daily if needed for Constipation. 476 g 11/05/19 24 Active pramipexole 2.25 mg Extended-Release tabletIndications :Restless legs syndrome (RLS) Take 1 Tablet by mouth once daily. 90 Tablet 3 11/05/19 24 Active spironolactone (ALDACTONE) 25 mg tabletIndications :HTN (hypertension) TAKE 1 TABLET(25 MG) BY MOUTH EVERY DAY 90 Tablet 11/05/19 24 Active rizatriptan (Maxalt-PEST CONTROL PILOT) 10 mg disintegrating tabletIndications :Intractable migraine without status migrainosus, unspecified migraine type Place 1 Tablet (10 mg) on the tongue 2 times daily if needed for Migraine. Give at minimum 2hrs apart. Max Dose: 30mg per 24hrs. 12 Tablet 3 11/05/19 24 Active tadalafiL (CIALIS) 10 mg tabletIndications :ED (erectile dysfunction) of non-organic origin Take 1 Tablet (10 mg) by mouth once daily if needed (Erectile dysfunction). Take 30 minutes before sexual activity. 30 Tablet 5 11/05/19 24 Active EPINEPHrine (EPIPEN) 0.3 mg/0.3 mL auto-injectorIndi cations:Anaphylax is, subsequent encounter Inject 0.3 mg intramuscular one time if needed for Anaphylaxis. 2 Each 2 04/08/20 24 Active atorvastatin (LIPITOR) 80 mg tabletIndications :Dyslipidemia Take 1 Tablet (80 mg) by mouth at bedtime. 90 Tablet 3 04/08/20 24 Active Blood Pressure Monitor KitIndications:HT N (hypertension) Frequency of testing: daily. Needs large BP cuff. 1 Each 04/08/20 Active losartan (COZAAR) 100 mg tabletIndications :HTN (hypertension) Take 1 Tablet (100 mg) by mouth once daily. 90 Tablet 3 04/08/20 Active EPINEPHrine (EPIPEN) 0.3 mg/0.3 mL auto-injectorIndi cations:Anaphylax is, subsequent encounter Inject 0.3 mg intramuscular one time if needed for Anaphylaxis. 2 Each 2 09/06/19 23 024 Discontin ued(Reord er (E-cancel not sent)) atorvastatin (LIPITOR) 40 mg tabletIndications :Dyslipidemia Take 1 Tablet (40 mg) by mouth at bedtime. 90 Tablet 3 11/05/19 24 024 Discontin ued(Reord er (E-cancel not sent)) losartan (COZAAR) 25 mg tabletIndications :HTN (hypertension) Take 2 Tablets (50 mg) by mouth once daily. 90 Tablet 3 11/05/19 24 024 Discontin ued(Reord er (E-cancel not sent)) magnesium oxide (MAG-OX 400) 400 mg tabletIndications :Restless legs syndrome Take 1 Tablet (400 mg) by mouth once daily. Take in the evening 90 Tablet 3 11/05/19 24 024 Discontin ued(*Kim ent states no longer taking) erythromycin ophthalmic ointment 0.5%Indications:A brasion of right cornea, initial encounter Apply 1 Strip to right eye 6 times daily. 3.5 g 4 10:16 PM CDT 12/01/19 24 024 Discontin ued(*Kim ent states no longer taking) Active Problems Problem Noted Date Diagnosed Date Diverticulosis 04/08/2024 ANGELY (obstructive sleep apnea) 04/08/2024 Stage 2 chronic kidney disease 04/08/2024 Type 2 diabetes mellitus wit h stage 3a chronic kidney disease, without long-term current use of insulin 04/08/2024 Allergic rhinitis 06/29/2023 Chronic GERD 09/10/2022 Nonischemic cardiomyopathy 09/10/2022 Chronic systolic congestive heart failure 2022 Dyslipidemia 09/10/2022 History of anaphylactic shock due to insect stin g 07/18/2021 Mild intermittent asthma without complication CAD (coronary artery disease): nonobstructive on angio 08/09/2017 Pulmonary HTN 08/09/2017 Tricuspid regurgitation 08/09/2017 Mitral regurgitation 08/09/2017 Tobacco user 06/21/2017 Cardiomyopathy 04/03/2017 Overview (01/14/2021): History reported by patient's significant other - unknown cause - diagnosed at [facility]. HTN (hypertension) 12/14/2010 Migraine, unspecified, witho ut mention of intractable migraine without mention of status migrainosus 12/14/2010 Nephrolithiasis 12/14/2010 Restless legs syndrome 12/14/2010 Resolved Problems Problem Noted Date Diagnosed Date Resolved Date Left wrist pain 06/29/2023 04/08/2024 Environmental allergies 09/10/202210/19 Pre-diabetes 09/10/2022 04/08/2024 SOB (shortness of breath) 06/16/2017 Acute streptococcal pharyngitis 02/14/2016 04/14/2016 Encounters Date Type Department Care Team Description 04/10/2024 Telephone [facility] [address] [place] [address] Elinor Nguyen MD Prior Authorization (EPINEPHrine (EPIPEN) 0.3 mg/0.3 mL auto-injector APPROVED 01/12/24-04/11/25) 04/09/2024 Telephone [facility] [address] [place] [address] Elinor Nguyen MD Results 04/08/2024 9:25 AM PRIMARY EDUCATION PROFESSOR Office Visit [facility] [address] [place] [address] Elinor Nguyen MD Establish Care; Diabetes; Restless Legs 04/08/2024 Travel from Last 3 Months Immunizations Name Administration Dates Next Due AMB INFLUENZA, IIV4 (AGE=>6M OS) V (Flu Clinic Only) 06/17/2017 COVID-19 vaccine (Jean Marie-J& J) MD DIONNEV 08/11/2020 COVID-19 vaccine ([employer] NTech 30mcg/0.3mL) PF, MDV 05/26/2021 Influenza A (H1N1), Inactivated 05/31/2009 Influenza A (H1N1), Inactiva marty (Age >=3 Years) 05/31/2009 Influenza Virus, Unspecified 06/29/2023, 02/28/2019,06/17/2017,2014,05/31/2009 Influenza, IIV3 (Age 6-35 mos) 05/31/2009 Influenza, IIV3 (Age >=3 years) 05/31/2009 Influenza, IIV4 03/02/2015 Influenza, IIV4 (=>6mos) MDV 06/29/2023,02/29/20 19 Pneumococcal Conj 20-valent (Prevnar 20) 07/18/2023 Td (Age >=7 Years) 01/19/2007 Tdap 08/09/2017 Tuberculin (PPD) 07/18/2021 Tuberculin Skin Test, Unspecified 07/18/2021 Zoster (Shingrix-RZV, recombinant) 07/18/2023, Family History Medical History Relation Name Comments Diabetes Brother 1 Hypertension Brother 2 Diabetes Father Hypertension Father Diabetes Mother Hypertension Mother Diabetes Sister 1 Diabetes Sister 2 Diabetes Sister 3 Hypertension Sister 4 Cancer-colon No Family History Relation Name Status Comments Brother 1 Brother 2 Father Mother Sister 1 Alive Sister 2 Sister 3 Sister 4 Social History Tobacco Use Types Packs/Day Years Used Date Smoking Tobacco: Some Days Cigarettes 0.5 2 Started: 08/19/2010; Last attempted to quit: 08/19/2012 Smokeless Tobacco: Never Tobacco Cessation:Ready to Q uit: No; Counseling Given: Yes Comments:limited stress smoking Alcohol Use Standard Drinks/Week Comments Not Currently 0 (1 standard drink = 0.6 oz pur e alcohol) PHQ-2 Answer Date Recorded PHQ-2 TOTAL SCORE 1 11/05/2023 Social Connections Answer Date Recorded Do you often feel lonely or isolated from those around you? 4 11/05/2023 Financial Resource Strain Answer Date R ecorded Difficulty of Paying Living Expenses 3 11/05/2023 Difficulty of Paying Living Expenses Not on file 11/05/2023 Food Insecurity Answer Date Recorded Do you worry your food will run out before you are able to buy more? 2 11/05/2023 Transportation Needs Answer Date Record ed Does lack of transportation keep you from medica l appointments? 2 11/05/2023 Does lack of transportation keep you from work, meetings or getting things that you need? 1 11/05/2023 Housing Stability Answer Date Recorded What is your housing situation today? 2 11/05/2023 Sex and Gender Information Value Date Recorded Sex Assigned at Male 06/27/2020 1:41 PM PRIMARY EDUCATION PROFESSOR Legal Sex Male 7:37 AM PRIMARY EDUCATION PROFESSOR Gender Identity Male 06/27/2020 1:41 PM PRIMARY EDUCATION PROFESSOR Sexual Orientation Choose not to disclose 2020 1:41 PM PRIMARY EDUCATION PROFESSOR Occupation Industry Job Start Date Job End Date student Not on file Not on file Not on file unemployed Not on file Not on file Not on file Obstetrics History Last Filed Vital Signs Vital Sign Reading Time Taken Comments Blood Pressure 198/136 04/08/2024 9:26 AM PRIMARY EDUCATION PROFESSOR Pulse 58 04/08/2024 9:26 AM PRIMARY EDUCATION PROFESSOR Temperature 36.8 C (98.3 F) 12/01/2023 8:44 PM CDT Respiratory Rate 12 12/01/2023 8:44 PM CDT Oxygen Saturation 97% 04/08/2024 9:26 AM PRIMARY EDUCATION PROFESSOR Inhaled Oxygen Concentration - - Weight 108.9 kg (240 lb) 04/08/2024 9:26 AM PRIMARY EDUCATION PROFESSOR Height 177.8 cm (5' 10) 12/01/2023 8:44 PM CDT Body Mass Index 34.44 12/01/2023 8:44 PM CDT Plan of Treatment Upcoming Encounters Date Type Department Care Team (Late st Contact Info) Description 05/09/2024 10:15 AM PRIMARY EDUCATION PROFESSOR Office Visit [facility] [address] [place] [address] Elinor Nguyen MD [address] [place] [address] 06/16/2024 11:30 AM PRIMARY EDUCATION PROFESSOR Office Visit [facility] [address] [place] [address] Melquiades Gustafson MD [address] [place] [address] Health Maintenance Due Date Last Done Comments Hepatitis B series for Diabetes (1 of 3 - 19+ 3-dose series) 10/25/1987 Colonoscopy through age 75 2013 COVID-19 vaccine series (2023- season) 2024 06/29/2023, 05/26/2021, 08/11/2020 Influenza for age 50-64 01/20/2024 06/29/19, 06/29/2023, 02/28/2019, Additional history exists BMI (ht and wt on same day) for age 18+ 11/04/2024 11/05/2023, 09/05/2022, 01/07/2021, Additional history exists Depression screening for age 12+ 11/04/2024 11/05/2023, 09/05/2022, 05/27/2021, Additional history exists Tetanus booster 08/10/2027 08/09/2017, 01/19/2007 Lipids for age 45-75 11/04/2028 11/05/2023, 09/05/2022, 05/02/2021, Additional history exists Tdap Completed 08/09/2017, 05/2006 (Completed outside of [facility]) HIV for age 15-65 Addressed 07/18/2021 (Ve rified in Care Everywhere or Patient Record) Overridden with the intention of not completing the topic Hepatitis C screening for age 18-79 Completed 09/05/2022 Pneumococcal series for age 6-64 Completed 07/18/2023 Zoster (shingles) series for age 50+ Completed 07/18/2023, 08/04/2021 Procedures Procedure Name Priority Date/Time Associated Diagnosis Comments HEMOGLOBIN A1C MONITORING (POCT) Routine 04/08/2024 10:18 AM PRIMARY EDUCATION PROFESSOR Type 2 diabetes mellitus with stage 3a chronic kidney disease, without long-term current use of insulin (HC) URINE ALBUMIN TO CREATININE RATIO, RANDOM Routine 04/08/2024 10:16 AM PRIMARY EDUCATION PROFESSOR Type 2 diabetes mellitus with stage 3a chronic kidney disease, without long-term current use of insulin (HC) BASIC METABOLIC PANEL Routine 04/08/2024 10:16 AM PRIMARY EDUCATION PROFESSOR Stage 2 chronic kidney disease LIPID PANEL W REFLEX MEASURED LDL Routine 11/05/2023 8:08 AM CDT HTN (hypertension) LC HCV ANTIBODY RFX TO QUANT PCR Routine 09/05/2022 3:27 PM CDT Need for hepatitis C screening test from Last 3 Months or Most Recently Relevant to Health Maintenance Results * HEMOGLOBIN A1C MONITORING (POCT) (04/08/2024 10:18 AM PRIMARY EDUCATION PROFESSOR) POC HEMOGLOBIN A1C 5.9 <6.0 % OF TOTAL HGB [facility] Comment: Any point of care results exhibiting inconsistency with the patient's clinical status should be repeated using a different testing method. Blood BLOOD SPECIMEN / Unknown 04/08/2024 10:18 AM PRIMARY EDUCATION PROFESSOR 04/08/2024 10:19 AM PRIMARY EDUCATION PROFESSOR Elinor Nguyen MD CHEMISTRY Fi nal Result [facility] [address] [place] [address], [facility] [address] [place] [address] * URINE ALBUMIN TO CREATININE RATIO, RANDOM (04/08/2024 10:16 AM PRIMARY EDUCATION PROFESSOR) CREATININE, RANDOM URINE 112 20 - 320 mg/dL [facility] ALBUMIN, URINE 1.0 See Note: mg/dL [facility] Comment: Reference Range: Reference Range Not established ALBUMIN/CREATININE RATIO, RANDOM URINE 9 <30 mg/g creat [facility] Comment: The ADA defines abnormalities in albumin excretion as follows: Albuminuria Category Result (mg/g creatinine) Normal to Mildly increased <30 Moderately increased 30-299 Severely increased > OR = 300 The ADA recommends that at least two of three specimens collected within a 3-6 month period be abnormal before considering a patient to be within a diagnostic category. Urine URINE SPECIMEN / Unknown 04/08/2024 10:16 AM PRIMARY EDUCATION PROFESSOR 04/08/2024 10:16 AM PRIMARY EDUCATION PROFESSOR Elinor Nguyen MD URINE Fi nal Result [facility] [address] [place] [address], [facility] [address] [place] [address] * (ABNORMAL) BASIC METABOLIC PANEL (04/08/2024 10:16 AM PRIMARY EDUCATION PROFESSOR) Pathologist [facility] GLUCOSE 107(H) 65 - 99 mg/dL [facility] Comment: Fasting reference interval For someone without known diabetes, a glucose value between 100 and 125 mg/dL is consistent with prediabetes and should be confirmed with a follow-up test. UREA NITROGEN (BUN) 10 7 - 25 mg/dL [facility] CREATININE 1.09 0.70 - 1.30 mg/dL [facility] EGFR 80 > OR = 60 mL/min/1. 73m2 [facility] BUN/CREATININE RATIO SEE NOTE: 6 - 22 (calc) [facility] Comment: Not Reported: BUN and Creatinine are within reference range. SODIUM 140 135 - 146 mmol/L [facility] POTASSIUM 4.0 3.5 - 5.3 mmol/L [facility] CHLORIDE 109 98 - 110 mmol/L [facility] CARBON DIOXIDE 23 20 - 32 mmol/L [facility] ELECTROLYTE BALANCE 8 7 - 17 mmol/L (calc) [facility] CALCIUM 8.9 8.6 - 10.3 mg/dL [facility] Blood BLOOD SPECIMEN / Unknown 04/08/2024 10:16 AM PRIMARY EDUCATION PROFESSOR 04/08/2024 10:16 AM PRIMARY EDUCATION PROFESSOR Elinor Nguyen MD CHEMISTRY Fi nal Result Performing Organization Address [facility]/ZIP Co de Phone Number [facility] [address] [place] [address], [place] [phone] [facility] [address] [place] [address] * (ABNORMAL) LIPID PANEL W REFLEX MEASURED LDL (11/05/2023 8:08 AM CDT) CHOLESTEROL,TOTAL 180 100 - 199 mg/dL 11/05/2023 11:39 AM CDT [facility] Comment: Cholesterol, Total Reference Ranges Desirable <200 mg/dL Borderline 200-239 mg/dL High >=240 mg/dL TRIGLYCERIDES 95 <150 mg/dL 11/05/2023 11:39 AM CDT [facility] HDL CHOLESTEROL 38(L) >40 mg/dL 11:39 AM CDT [facility] NON-HDL CHOLESTEROL 142 <145 mg/dl 11/05/2023 11:39 AM CDT [facility] CHOL/HDL RATIO 4.74(H) <4.50 11/05/2023 11:39 AM CDT [facility] LDL CHOLESTEROL 123 <=130 mg/dL 11/05/2023 11:39 AM CDT [facility] VLDL CHOLESTEROL 19 <=30 mg/dL 11/05/2023 11:39 AM CDT [facility] PROVIDER ORDERED STATUS RANDOM 11/05/2023 11:39 AM CDT [facility] Blood BLOOD SPECIMEN / Unknown Venipuncture / Unknown 11/05/2023 8:08 AM CDT 11/05/2023 8:10 AM CDT us Phoebe Aguilar NP CHEMISTRY Final Resul t [facility] [address] [place] [address], [place] * LC HCV ANTIBODY RFX TO QUANT PCR (09/05/2022 3:27 PM CDT) HCV Ab Non Reactive Non Reactive 09/09/2022 7:[address] [facility] ([facility]) Blood BLOOD SPECIMEN / Unknown Venipuncture / Unknown 09/05/2022 3:27 PM CDT 09/05/2022 3:29 PM CDT Narrative [facility] ([facility]) - 09/09/2022 7:12 AM CDT Performed at: 01 - [facility] [place] [id number] Desk Operator: Juan Mcrae MD, Phone: [phone] us [facility] Fin al Result [facility] ([facility]) [facility] [address] from Last 3 Months or Most Recently Relevant to Health Maintenance Insurance [facility] Advance Directives Documents on File Type Date Recorded Patient Plant Guide Expl anation Power of Operating System Designer 09/07/2020 1:46 PM POWER OF COMMUNICATIONS SYSTEMS ENGINEER Power of Operating System Designer 02/02/2020 2:38 PM Alexia Jimenez * Full Code (Latest Code Status on File) Date Activated Date Inactivated Comments 08/05/2017 1:20 PM 08/06/2017 2:56 PM Care Teams Marshmallow Machine Worker Relationship Specialty Start Date End Date Elinor Nguyen MD [address] [place] [address] PCP - General Family Practice 03/28/24 Sam [employer] [address] [place], [place] [address] [place] [address] Consulting Physician Cardiovascular Disease 08/02/17 [facility] 11/05/18
--- OUTSIDE RECORDS SUMMARY | 2024-04-26 09:17 | XMS_ITS | Referral Summary ---
Author Organization [facility] Address [address] [place] [address] Care Team Providers Care Administrative Assistant Office Manager Name Role Phone Elsewhere, Pcp Primary Care Provider Unavailabl e Source Comments Patient records contain information from all sites at [facility]. For routine questions regarding patient records, call [phone] during business hours, M-F 8:00 AM - 5:00 PM Central Time. Record requests for emergency care only can be directed to [phone] at any time.[facility] Allergies Active Allergy Reactions Criticality [...] tablet by mouth daily. 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 History reported by patient's significant other - unknown cause - diagnosed at [facility]. History reported by patient's significant other - unknown cause - diagnosed at [facility]. History reported by patient's significant other - unknown cause - diagnosed at [facility]. Migraine Headache 12/14/2010 Nephrolithiasis 12/14/2010 Restless Leg [...] D.N.P. LAB BLOOD AD D-ON Final Result [facility] [address] [place] [address], [facility] [employer] in [address] [address] from Last 3 Months or Most Recently Relevant to Health Maintenance Insurance [address] D[place] Garcia [id number] [place] [address] Care Teams Administrative Assistant Office Manager Relationship Specialty Start Date End Date Elsewhere, Pcp PCP - General Internal Medicine 12/07/22
--- OUTSIDE RECORDS SUMMARY | 2024-04-26 09:17 | XMS_ITS | Clinical Summary ---
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 Sumatriptan Rash 10/29/2008 Medications gabapentin (NEURONTIN) 600 MG tabletIndications:R estless legs syndrome Take 0.5 tablets (300 mg total) by mouth 3 (three) times a day 90 tablet 2 12/13/19 23 Active Additional Information Patient taking differently: 900 mgOralDaily, Reported on 06/29/2023 amLODIPine (NORVASC) 10 MG tabletIndications:B enign essential hypertension Take 1 tablet (10 mg total) by mouth 1 (one) time each day 30 tablet 1 06/29/19 24 025 Active aspirin 81 MG EC tabletIndications:C ardiomyopathy, unspecified type (HCC) Take 1 tablet (81 mg total) by mouth 1 (one) time each day 30 tablet 1 06/29/19 24 025 Active atorvastatin (LIPITOR) 40 MG tabletIndications:C ardiomyopathy, unspecified type (HCC) Take 1 tablet (40 mg total) by mouth every night 30 tablet 1 06/29/19 24 025 Active carvedilol (COREG) 25 MG tabletIndications:B enign essential hypertension Take 1 tablet (25 mg total) by mouth 2 (two) times a day with meals 60 tablet 1 06/29/19 24 025 Active EPINEPHrine (EpiPen 2-Trey) 0.3 MG/0.3ML injection syringeIndications: 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 Call 911 after use. 2 each 06/29/19 24 Active esomeprazole (NexIUM) [address] capsuleIndications: Gastroesophageal reflux disease, unspecified whether esophagitis present Take 1 capsule (40 mg total) by mouth 1 (one) time each day 30 capsule 1 06/29/19 24 025 Active famotidine (PEPCID) 40 MG tabletIndications:G astroesophageal reflux disease, unspecified whether esophagitis present Take 1 tablet (40 mg total) by mouth 1 (one) time each day 30 tablet 1 06/29/19 24 025 Active fexofenadine (DEEPA) 180 MG tabletIndications:A llergic rhinitis, unspecified seasonality, unspecified trigger Take 1 tablet (180 mg total) by mouth 1 (one) time each day 30 tablet 1 06/29/19 24 025 Active furosemide (LASIX) 20 MG tabletIndications:C ardiomyopathy, unspecified type (HCC) Take 2 tablets (40 mg total) by mouth 1 (one) time each day 60 tablet 1 06/29/19 24 025 Active losartan (COZAAR) 25 MG tabletIndications:B enign essential hypertension Take 1 tablet (25 mg total) by mouth 1 (one) time each day 30 tablet 1 06/29/19 24 025 Active Pramipexole Dihydrochloride ER 2.25 MG tablet sustained-release 24 hourIndications:Res tless legs syndrome Take 2.25 mg by mouth at bed time 30 tablet 1 06/29/19 24 025 Active rizatriptan FUNERAL HOME ATTENDANT (MAXALT-FUNERAL HOME ATTENDANT) 10 MG dispersible tabletIndications:M igraine without status migrainosus, not intractable, unspecified migraine type Take 1 tablet (10 mg total) by mouth 1 (one) time if needed for migraine 9 tablet 06/29/19 24 Active spironolactone (ALDACTONE) 25 MG tabletIndications:B enign essential hypertension Take 1 tablet (25 mg total) by mouth 1 (one) time each day 30 tablet 1 06/29/19 24 025 Active nicotine polacrilex (Nicorette) 4 MG gumIndications:Huseyin garfield abuse Chew 1 each (4 mg total) if needed for smoking cessation Cinnamon 100 each 1 06/29/19 24 Active mometasone (NASONEX) 50 MCG/ACT nasal sprayIndications:Al lergic rhinitis, unspecified seasonality, unspecified trigger Administer 2 sprays into each nostril 1 (one) time each day 17 g 1 07/12/19 24 Active albuterol HFA (Ventolin HFA) 108 (90 Base) MCG/ACT inhalerIndications: Allergic rhinitis, unspecified seasonality, unspecified trigger Inhale 2 puffs every 4 (four) hours if needed for wheezing or shortness of breath 18 g 1 07/12/19 24 025 Active Active Problems Problem Noted Date Diagnosed [...] SOB (shortness of breath) 06/16/2017 Cardiomyopathy 04/03/2017 Overview (07/18/2021): History reported by patient's significant other - unknown cause - diagnosed at [facility] [place]. History reported by patient's significant other - unknown cause - diagnosed at [facility] [place]. HTN (hypertension) 12/14/2010 Migraine headache 12/14/2010 Nephrolithiasis [...] recombinant spike protein- Ad26, preservative free, 0.5mL ([employer]) 08/11/2020 Td 01/19/2007 Tdap 08/09/2017 Zoster Recombinant [...] 06/29/2023 How often do you attend chur ch or buddhism services? 1 to 4 times per year 06/29/2023 Do you belong to any clubs o r organizations such as worship groups, unions, fraternal or athletic groups, or [...] Date Recorded PHQ-9 Total Score 7 06/29/2023 [facility] Occupat [facility] - Occupational Stress [...] place to sleep or slept in a correction (including now)? Patient declined 06/29/2023 Sex and Gender Information Value Date Recorded Sex Assigned at Not on file Legal Sex Male 2:08 PM AUTOMATIC NAILING MACHINE OPERATOR Gender Identity Not on file Sexual Orientation Not on file Last Filed Vital Signs Vital Sign Reading Time Taken Comments Blood Pressure 120/74 06/29/2023 3:41 PM AUTOMATIC NAILING MACHINE OPERATOR Pulse 81 06/29/2023 2:59 PM AUTOMATIC NAILING MACHINE OPERATOR Temperature 36.8 C (98.3 F) 06/29/2023 2:59 PM AUTOMATIC NAILING MACHINE OPERATOR Respiratory Rate 16 06/29/2023 2:59 PM AUTOMATIC NAILING MACHINE OPERATOR Oxygen Saturation 97% 06/29/2023 2:59 PM AUTOMATIC NAILING MACHINE OPERATOR Inhaled Oxygen Concentration - - Weight 105 kg (231 lb) 06/29/2023 2:59 PM AUTOMATIC NAILING MACHINE OPERATOR Height 175 cm (5' 8.9) 06/29/2023 2:59 PM AUTOMATIC NAILING MACHINE OPERATOR Body Mass Index 34.21 06/29/2023 2:59 PM AUTOMATIC NAILING MACHINE OPERATOR Plan of Treatment Health Maintenance Due Date Last Done Comments CT Colonography 1968 Colonoscopy 1968 Colorectal Cancer Screening 1968 FIT-DNA 1968 Sigmoidoscopy 1968 iFOBT 1968 COVID-19 Vaccine ( season) 2024 06/29/2023, 05/26/2021, [...] on patient's age to complete this topic Insurance [employer] Care Teams Operations Manager/Coordinator Relationship Specialty Start Date End Date Freddy Hancock PA PCP - General Family Medicine 08/05/21
--- NOTE | 2024-04-26 09:19 | ED_ITS ---
HPI - General Adult General Chief complaint: Unspecified Complaint, Adult Stated complaint: hx cardiomyopathy/shortness of breath Time Seen by Provider: 04/26/24 08:52 History of Present Illness HPI narrative: Patient is a 53-year-old gentleman who comes in today just not feeling well with body aches fatigue and shortness of breath. He has had no overt chest pain does have a history of cardiomyopathy and his medication review indicates that he has a history of congestive heart failure as well. He has been taking his medications without incident. He has no lower extremity edema. No changes bowel or bladder no head neck symptoms. Overall just general sense of malaise. Related Data Home Medications ?Medication ?Instructions ?Recorded ?Confirmed amlodipine 10 mg tablet 10 mg PO DAILY 02/22/24 02/22/24 atorvastatin 40 mg tablet 40 mg PO DAILY 02/22/24 02/22/24 carvedilol 12.5 mg tablet 12.5 mg PO BID 02/22/24 02/22/24 esomeprazole magnesium 40 mg 40 mg PO DAILY 02/22/24 02/22/24 capsule,delayed release famotidine 40 mg tablet 40 mg PO DAILY 02/22/24 02/22/24 fluoxetine 40 mg capsule mg PO 02/22/24 furosemide 20 mg tablet 20 mg PO DAILY 02/22/24 02/22/24 hydroxyzine HCl 50 mg tablet 50 mg PO BID 02/22/24 02/22/24 spironolactone 25 mg tablet 25 mg PO DAILY 02/22/24 02/22/24 Previous Rx's ?Medication ?Instructions ?Recorded azithromycin 250 mg tablet See Rx Instructions PO .COMPLEX #6 04/26/24 (Zithromax Z-Trey) tabs Allergies Allergy/AdvReac Type Severity Reaction Status Date / Time bee venom protein (honey bee) Allergy Verified 04/26/24 08:45 spider venom Allergy Verified 04/26/24 08:45 sumatriptan Allergy Verified 04/26/24 08:45 Review of Systems Status of ROS: Reports: 10 or more systems reviewed and unremarkable except as noted in History and below [facility] Medical History (Updated 04/26/24 @ 10:34 by Rober Vizcarra MD) Cardiomyopathy ?I42.9 - Cardiomyopathy, unspecified (ICD-10) Social History Smoking Status: Current every day smoker How often do you have a drink containing alcohol: never AUDIT-C Alcohol total score: 0 Non-prescribed substance use: marijuana (any form) Exam Narrative: Exam Narrative: EXAM GENERAL: Patient appears comfortable and well. EYES: No scleral icterus. LYMPH: No supraclavicular or cervical lymphadenopathy. SKIN: Visible skin seen during exam normal or with benign process only. EXT: No dependent lower extremity pedal edema. HEART: Regular rate and rhythm with no murmurs, rubs, or gallops. LUNGS: Clear to auscultation bilaterally with no crackles or wheezes. ABD: Soft, non tender, non distended. PSYCH: Good eye contact, speech is not pressured. Const: Vital Signs, click to edit/add: Vital Signs - 24 hr 04/26/24 08:38 04/26/24 08:49 04/26/24 08:51 Temperature 97.3 F L Pulse Rate 73 Pulse Rate [Left P ulse Oximeter] 96 Respiratory Rate 25 H Blood Pressure 191/125 H Blood Pressure [Ri ght Upper Arm] 190/131 H Pulse Oximetry 96 Oxygen Delivery Me thod Room Air 04/26/24 08:52 04/26/24 09:15 04/26/24 09:17 Temperature Pulse Rate 80 66 Pulse Rate [Left P ulse Oximeter] Respiratory Rate Blood Pressure 190/131 H 181/118 H Blood Pressure [Ri ght Upper Arm] Pulse Oximetry 96 98 Oxygen Delivery Me thod 04/26/24 09:18 04/26/24 09:30 04/26/24 09:32 Temperature Pulse Rate 65 63 68 Pulse Rate [Left P ulse Oximeter] Respiratory Rate Blood Pressure 174/110 H Blood Pressure [Ri ght Upper Arm] Pulse Oximetry 94 95 94 Oxygen Delivery Me thod 04/26/24 09:41 04/26/24 09:45 Temperature Pulse Rate 70 Pulse Rate [Left P ulse Oximeter] Respiratory Rate 18 Blood Pressure Blood Pressure [Ri ght Upper Arm] Pulse Oximetry 94 Oxygen Delivery Me thod Course Course ED Course: Patient appears comfortable and well. Respiratory was 25 on nurse assessment however on my assessment is 16. He will have full cardiac workup including troponin chest x-ray EKG CBC basic metabolic panel. Also will add viral swab. Vital Signs Vital signs: Initial Vital Signs Temperature 97.3 F L 04/26/24 08:38 Temperature Source Temporal Artery Scan 04/26/24 08:38 Pulse Rate 96 04/26/24 08:38 Respiratory Rate 25 H 04/26/24 08:38 Blood Pressure 190/131 H 04/26/24 08:38 Blood Pressure Mean 150 H 04/26/24 08:38 Blood Pressure Position Sitting 04/26/24 08:38 Pulse Oximetry 96 04/26/24 08:38 Oxygen Delivery Method Room Air 04/26/24 08:38 Vital Signs Temperature 97.3 F L 04/26/24 08:38 Pulse Rate 96 04/26/24 08:38 Respiratory Rate 25 H 04/26/24 08:38 Blood Pressure 190/131 H 04/26/24 08:38 Pulse Oximetry 96 04/26/24 08:38 Oxygen Delivery Method Room Air 04/26/24 08:38 Temperature 97.3 F L 04/26/24 08:38 Pulse Rate 70 04/26/24 09:45 Respiratory Rate 18 04/26/24 09:41 Blood Pressure 174/110 H 04/26/24 09:32 Pulse Oximetry 94 04/26/24 09:45 Oxygen Delivery Method Room Air 04/26/24 08:38 Medical Decision Making MDM Narrative Medical decision making narrative: Patient is a 53-year-old gentleman with complex past medical history presents with general malaise. Viral swab is negative. He does not really. Have any signs of acute heart issues his EKG and troponin are negative. ProBNP is also negative. X-ray shows findings consistent with mild infection but no lobar pneumonia. With his comorbidities I did treated with Z-Trey as directed and recommend close outpatient follow-up. Differential diagnosis includes but not limited to congestive heart failure acute myocardial infarction unstable angina pneumonia bronchitis. Lab Data Labs: Lab Results 04/26/24 04/26/24 Range/Units 09:25 09:27 WBC 3.80 L (4.50-11.00) K/uL RBC 5.30 (4.30-5.90) m/uL Hgb 14.0 (13.5-17.5) gm/dL Hct 43.3 (37.0-53.0) % MCV 82 (80-100) fL MCH 26 (26-34) pg MCHC 32 (32-36) gm/dL RDW Coeff of Adrianna 17.0 H (11.5-15.5) % Plt Count 200 (140-440) K/uL Neut % (Auto) 44.5 (42.0-72.0) % Lymph % (Auto) 39.5 (20-44) % [place]ax % (Auto) 10.8 (0.0-11.0) % Eos % (Auto) 4.7 (0.0-7.0) % Baso % (Auto) 0.5 (0.0-3.0) % Neut # (Auto) 1.70 (1.7-7.0) K/uL Lymph # (Auto) 1.50 (0.90-2.90) K/uL Galax # (Auto) 0.40 (0.00-0.90) K/UL Eos # (Auto) 0.20 (0.00-0.50) K/uL Baso # (Auto) 0.00 (0.00-0.30) K/uL Abs Immat Gran (auto) 0.00 (0.00-0.30) K/uL Imm/Tot Granulo (auto) 0.0 % Sodium 139 (135-149) mmol/L Potassium 3.4 L (3.6-5.1) mmol/L Chloride 108 (96-114) mmol/L Carbon Dioxide 24 (20-32) mmol/L Anion Gap 7 (7-15) mEq/L BUN 9 (7-30) mg/dL Creatinine 1.0 (0.5-1.5) mg/dL Estimated Creat Clear 83.47 Estimated GFR 89 ml/min Glucose 102 (60-115) mg/dL Calcium 9.1 (8.4-10.6) mg/dL Total Bilirubin 0.5 (0.1-1.5) mg/dL AST 24 (12-35) U/L ALT 16 (4-50) U/L Alkaline Phosphatase 101 (40-150) U/L Troponin I < 0.01 L (0.01-0.04) ng/mL NT-Pro-B Natriuret Pep 414 pg/mL Total Protein 7.8 (6.0-8.3) g/dL Albumin 4.4 (3.3-5.0) g/dL SARS-CoV-2 (PCR) Negative SARS-CoV-2 (Negative) Influenza Type A (PCR) Negative PCR FLU A (Negative) Influenza Type B (PCR) Negative PCR FLU B (Negative) RSV (PCR) Negative PCR RSV (Negative) Discharge Plan Discharge Clinical Impression: Pneumonia Patient Disposition: Home, Self-Care Condition: Stable Instructions: Community Acquired Pneumonia (ED) Additional Instructions: Zithromax as directed Activity Level: No Restrictions Discharge Diet: Regular Prescriptions: New azithromycin [Zithromax Z-Trey] 250 mg tablet See Rx Instructions .ROUTE .COMPLEX Qty: 6 0RF Rx Instructions: For 250 mg dose pack: take 500 mg today (day 1), then 250 mg for 4 days (days 2-5) No Action fluoxetine 40 mg capsule PO atorvastatin 40 mg tablet 40 mg PO DAILY carvedilol 12.5 mg tablet 12.5 mg PO BID famotidine 40 mg tablet 40 mg PO DAILY hydroxyzine HCl 50 mg tablet 50 mg PO BID spironolactone 25 mg tablet 25 mg PO DAILY amlodipine 10 mg tablet 10 mg PO DAILY esomeprazole magnesium 40 mg capsule,delayed release(DR/EC) 40 mg PO DAILY furosemide 20 mg tablet 20 mg PO DAILY Follow Up/Referrals: Provider,Not a Local [Primary Care Provider] - Stand Alone Forms: ArriveBefore Info Instructions
[2024-04-26 09:49] LABS: Basophils Percent Auto 0.5 % (0.0-3.0); Eosinophils Percent Auto 4.7 % (0.0-7.0); Hematocrit 43.3 % (37.0-53.0); Lymphocytes Percent Auto 39.5 % (20-44); Mean Corpuscular HGB Conc 32 gm/dL (32-36); Mean Corpuscular Hemoglobin 26 pg (26-34); Mean Corpuscular Volume 82 fL (80-100); Monocytes Percent Auto 10.8 % (0.0-11.0); Neutrophils Percent Auto 44.5 % (42.0-72.0); Platelet Count* 200 K/uL (140-440)
[2024-04-26 09:53] LABS: Slide Review Reflex No
[2024-04-26 09:54] LABS: Albumin* 4.4 g/dL (3.3-5.0)
[2024-04-26 09:55] LABS: Chloride* 108 mmol/L (96-114); Potassium* 3.4 mmol/L (3.6-5.1); Sodium* 139 mmol/L (135-149)
[2024-04-26 09:57] LABS: Anion Gap 7 mEq/L (7-15); Aspartate Amino Transferase* 24 U/L (12-35); Bilirubin Total* 0.5 mg/dL (0.1-1.5); Carbon Dioxide* 24 mmol/L (20-32); Est. Creatinine Clearance* 83.47; Estimated Glomerular Filt Rate 89 ml/min
[2024-04-26 09:58] LABS: Alanine Aminotransferase* 16 U/L (4-50); Alkaline Phosphatase* 101 U/L (40-150); Blood Urea Nitrogen* 9 mg/dL (7-30); Calcium* 9.1 mg/dL (8.4-10.6); Glucose* 102 mg/dL (60-115); Total Protein* 7.8 g/dL (6.0-8.3)
[2024-04-26 10:09] LABS: NT Pro B Type NatriureticPept* 414 pg/mL
[2024-04-26 10:12] LABS: PCR FLU A Negative PCR FLU A (Negative); PCR FLU B Negative PCR FLU B (Negative); PCR RSV Negative PCR RSV (Negative); SARS PCR* Negative SARS-CoV-2 (Negative)
[2024-04-26 10:12] LABS: Troponin I* < 0.01 ng/mL (0.01-0.04)
== END 2024-04-26 10:53 | disposition home or self-care (01) ==
PROVIDERS: Emergency Provider Internal Medicine
DX: J18.9 Pneumonia, unspecified organism (principal)
CPT/HCPCS: 36415; 71045; 80053; 83880; 84484; 85025; 87631; 93005; 99283; 99284

== ENCOUNTER 2024-07-18 08:59 | Emergency (ER) | payer BC, SELFPAY ==
--- OUTSIDE RECORDS SUMMARY | 2024-07-18 09:01 | XMS_ITS | Patient Health Record ---
Author Organization [facility] [employer] [facility] - Primary Address [address] [place] [address] Care Team Providers Care Floor Assembler Name Role Phone Different, PCP Primary Care Provider Unavailabl e ALLERGIES Allergen (clinical drug ingredient) Drug/Non Drug Allergy documented on EMR Reaction Allergy Type Onset Date Status lisinopril coughing Drug Allergy Active REASON FOR REFERRAL No Information MEDICATIONS Medication SIG (Take, Route, Fr equency, Duration) Notes Start Date End Date Status Lidocaine Viscous 2% SWISH AND SPIT 10 M L EVERY 4 HOURS NEEDED FOR SORE THROAT for 2 Active spironolactone 25 mg TAKE 1 2 (ONE HALF) TABLET BY MOUTH ONCE DAILY for 30 Active carvedilol 12.5 mg TAKE 1 TABLET BY SIVA TWICE DAILY for 30 Active amLODIPine 10 mg 1 tab(s) orally once a day for 30 day(s) Active Mirapex 1.5 mg 1 tab(s) orally 2 at [facility] Active gabapentin 300 mg TAKE 1 CAPSULE BY MO UT AT BEDTIME FOR RESTLESS LEGS for 30 [...] (primary) hypertension (I10) Active confirmed Essential hypertension (84133604) Problem Restless legs syndrome (G25.81) Active confirmed Restless l egs syndrome (37541280) Problem Nicotine dependence, cigarettes, uncomplicated (F17.210) Active confirmed Tobacco user (287230607) Problem Chronic pain syndrome (G89.4) Active confirmed Chronic valeriano n syndrome (196953450) PLAN OF TREATMENT No Information Insurance Providers Payer Name Payer Address Payer Phone Subscriber Number Group Number Insured Name Patient Relationship to Insured Coverage Start Date Coverage End Date [employer] [address] [address] [place] [address] [id number] [facility] Richard Bonilla Self - patient is the insured MEDICAL (GENERAL) HISTORY Medical History History ICD Code chronic pain Anxiety arthritis RLS Surgical History Surgery Date(Month/Year)
--- OUTSIDE RECORDS SUMMARY | 2024-07-18 09:01 | XMS_ITS | Clinical Summary ---
Author Organization [facility] Address [address] [place] [id number] Care Team Providers Care Retail Manager In Training Name Role Phone Avelino Sam HARMAN Unavailable + [phone] Frank, Jose Unavailable Unavailable Elinor Nguyen MD Primary Care Prov ider Allergies Active Allergy Reactions Criticality Noted Date Comments Sumatriptan Rash 10/29/2008 Lisinopril Cough 10/10/2017 Mixed Vespid Venom *Unknown 03/05/2017 Venom-Honey Bee Throat Swelling/Closing 010 Bees and wasps Medications NebulizerIndicatio ns:Mild intermittent asthma without complication Nebulizer, disposable neb [...] clindamycin phosphate 1% topical 1 % external solutionIndication s: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 180 mL 2 09/06/19 23 Active nebulizer accessories misc miscIndications:Mi ld intermittent asthma without complication As directed. 1 Each 11/17/19 23 Active albuterol 0.083% (2.5 mg/3 mL) neb solutionIndication s:Mild intermittent asthma without complication Inhale 3 mL (2.5 mg) via a nebulizer every 4 hours if needed for Shortness Of Breath or Wheezing. 100 Each 11/05/19 24 Active Ventolin HFA 90 mcg/actuation inhalerIndications :Bronchospasm Inhale 1-2 Puffs by mouth every 4 hours while awake. 18 g 11/05/19 24 Active amLODIPine (NORVASC) 10 mg tabletIndications: HTN (hypertension) Take 1 Tablet (10 mg) by mouth once daily. 90 Tablet 3 11/05/19 24 Active aspirin (ECOTRIN) 81 mg enteric coated tabletIndications: Pain Take 1 Tablet (81 mg) by mouth once daily. 90 Tablet 3 11/05/19 24 Active busPIRone (BUSPAR) 30 mg tabletIndications: PTSD (post-traumatic stress disorder) Take 1 Tablet (30 mg) by mouth two times daily. 180 Tablet 3 11/05/19 24 Active carvediloL (COREG) 12.5 mg tabletIndications: Nonischemic cardiomyopathy (HC),Chronic systolic congestive heart failure (HC) Take 1 Tablet (12.5 mg) by mouth two times daily. 180 Tablet 3 11/05/19 24 Active esomeprazole (NEXIUM) 40 mg capsuleIndications :Epigastric pain,Chronic GERD Take 1 Capsule (40 mg) by mouth once daily before a meal. 90 Capsule 3 11/05/19 24 Active famotidine (PEPCID) 40 mg tabletIndications: Chronic GERD Take 1 Tablet (40 mg) by mouth once daily. 90 Tablet 3 11/05/19 24 Active fexofenadine (DEEPA) 180 mg tabletIndications: Environmental allergies Take 180 mg by mouth once daily if needed for Allergy Symptoms. Do not crush or chew. 90 Tablet 1 11/05/19 24 Active FLUoxetine (PROZAC) 40 mg capsuleIndications :Depression, recurrent,PTSD (post-traumatic stress disorder) Take 2 Capsules (80 mg) by mouth once daily in the morning. 180 Capsule 3 11/05/19 24 Active furosemide (LASIX) 20 mg tabletIndications: Nonischemic cardiomyopathy (HC),Chronic systolic congestive heart failure (HC) Take 1 Tablet (20 mg) by mouth once daily in the morning. 90 Tablet 3 11/05/19 24 Active gabapentin (NEURONTIN) 300 mg capsuleIndications :Restless legs syndrome (RLS) Take 1 Capsule (300 mg) by mouth three times daily. 270 Capsule 3 11/05/19 24 Active hydrOXYzine HCL (ATARAX) 50 mg tabletIndications: PTSD (post-traumatic stress disorder) Take 1 tablet at bedtime every day 90 Tablet 3 11/05/19 24 Active lamoTRIgine (LAMICTAL) 25 mg tabletIndications: Depression, recurrent Take 1 Tablet (25 mg) by mouth once daily. 90 Tablet 3 11/05/19 24 Active mometasone (NASONEX) (50 mcg each actuation) nasal sprayIndications:E nvironmental allergies Inhale 2 Sprays to both nostrils once daily. 17 g 12 11/05/19 24 Active polyethylene glycoL (MIRALAX) 17 gram/scoop powderIndications: Constipation, unspecified constipation type Mix 1 scoop (17 g) in liquid then take by mouth once daily if needed for Constipation. 476 g 3 11/05/19 24 Active pramipexole 2.25 mg Extended-Release tabletIndications: Restless legs syndrome (RLS) Take 1 Tablet by mouth once daily. 90 Tablet 3 11/05/19 24 Active spironolactone (ALDACTONE) 25 mg tabletIndications: HTN (hypertension) TAKE 1 TABLET(25 MG) BY MOUTH EVERY DAY 90 Tablet 3 11/05/19 24 Active rizatriptan (Maxalt-FLEET ADMINISTRATOR) 10 mg disintegrating tabletIndications: Intractable migraine without status migrainosus, unspecified migraine type Place 1 Tablet (10 mg) on the tongue 2 times daily if needed for Migraine. Give at minimum 2hrs apart. Max Dose: 30mg per 24hrs. 12 Tablet 3 11/05/19 24 Active tadalafiL (CIALIS) 10 mg tabletIndications: ED (erectile dysfunction) of non-organic origin Take 1 Tablet (10 mg) by mouth once daily if needed (Erectile dysfunction). Take 30 minutes before sexual activity. 30 Tablet 5 11/05/19 24 Active EPINEPHrine (EPIPEN) 0.3 mg/0.3 mL auto-injectorIndic ations:Anaphylaxis , subsequent encounter Inject 0.3 mg intramuscular one time if needed for Anaphylaxis. 2 Each 2 04/08/20 24 Active atorvastatin (LIPITOR) 80 mg tabletIndications: Dyslipidemia Take 1 Tablet (80 mg) by mouth at bedtime. 90 Tablet 3 04/08/20 24 Active Blood Pressure Monitor KitIndications:HTN (hypertension) Frequency of testing: daily. Needs large BP cuff. 1 Each 04/08/20 24 Active losartan (COZAAR) 100 mg tabletIndications: HTN (hypertension) Take 1 Tablet (100 mg) by mouth once daily. 90 Tablet 3 04/08/20 24 Active Active Problems Problem Noted Date Diagnosed [...] other - unknown cause - diagnosed at [facility]. HTN (hypertension) 12/14/2010 Migraine, unspecified, witho ut mention of intractable migraine without mention of status migrainosus 12/14/2010 Nephrolithiasis 12/14/2010 Restless legs syndrome 12/14/2010 Resolved Problems Problem Noted Date Diagnosed Date Resolved Date Left wrist pain 06/29/2023 04/08/2024 Environmental allergies 09/10/202210/19 Pre-diabetes 09/10/2022 04/08/2024 SOB (shortness of breath) 06/16/2017 Acute streptococcal pharyngitis 02/14/2016 04/14/2016 Immunizations Name Administration Dates Next Due AMB INFLUENZA, IIV4 (AGE=>6M OS) MDV (Flu Clinic Only) 06/17/2017 COVID-19 vaccine ([employer]-J& J) PF, MDV 08/11/2020 COVID-19 vaccine ([employer] 30mcg/0.3mL) PF, MDV 05/26/2021 Influenza A (H1N1), [...] is your housing situation today? 2 11/05/2023 Interpersonal Safety Answer Date Record ed Are you being hit, kicked, p ushed or yelled at (see row info)? No 12/01/2023 Interpersonal Safety Abuse 12 - 18 Not on file 12/01/2023 Interpersonal Safety Ambulatory Vulnerability No t on file 12/01/2023 Utilities Answer Date Recorded Do you have trouble paying f or utilities (for example, heat, electricity, water, phone)? 1 11/05/2023 Sex and Gender Information Value Date Recorded Sex Assigned at Male 06/27/2020 1:41 PM POULTICE MACHINE OPERATOR Legal Sex Male 7:37 AM POULTICE MACHINE OPERATOR Gender Identity Male 06/27/2020 1:41 PM POULTICE MACHINE OPERATOR Sexual Orientation Choose not to disclose 2020 1:41 PM POULTICE MACHINE OPERATOR Occupation Industry Job Start Date Job End Date student Not on file Not on file Not on file unemployed Not on file Not on file Not on file Obstetrics History Last Filed Vital Signs Vital Sign Reading Time Taken Comments Blood Pressure 198/136 04/08/2024 9:26 AM POULTICE MACHINE OPERATOR Pulse 58 04/08/2024 9:26 AM POULTICE MACHINE OPERATOR Temperature 36.8 C (98.3 F) 12/01/2023 8:44 PM CDT Respiratory Rate 12 12/01/2023 8:44 PM CDT Oxygen Saturation 97% 04/08/2024 9:26 AM POULTICE MACHINE OPERATOR Inhaled Oxygen Concentration - - Weight 108.9 kg (240 lb) 04/08/2024 9:26 AM POULTICE MACHINE OPERATOR Height 177.8 cm (5' 10) 12/01/2023 8:44 PM CDT Body Mass Index 34.44 12/01/2023 8:44 PM CDT Plan of Treatment Health Maintenance Due Date Last Done Comments Hepatitis B series for Diabetes (1 of 3 - 19+ 3-dose series) 10/25/1987 Colonoscopy through age 75 2013 COVID-19 vaccine series ( season) 2024 06/29/2023, 05/26/2021, 08/11/2020 Influenza for [...] Tdap Completed 08/09/2017, 05/2006 ([facility] HIV for age 15-65 Addressed 07/18/2021 (Ve rified in Care Everywhere or Patient Record) Overridden with the intention of not completing the topic Hepatitis C screening for age 18-79 Completed 09/05/2022 Pneumococcal series for age 50+ Completed 07/18/2023 Zoster (shingles) series for age 50+ Completed 07/18/2023, 08/04/2021 Procedures Procedure Name Priority Date/Time Associated Diagnosis Comments LIPID PANEL W REFLEX MEASURED LDL Routine 11/05/2023 8:08 AM CDT HTN (hypertension) LC HCV ANTIBODY RFX TO QUANT PCR Routine 09/05/2022 3:27 PM CDT Need for hepatitis C screening test from Last 3 Months or Most Recently Relevant to Health Maintenance Results * (ABNORMAL) LIPID PANEL W REFLEX MEASURED LDL (11/05/2023 8:08 AM CDT) CHOLESTEROL,TOTAL 180 100 - 199 mg/dL 11/05/2023 11:39 AM CDT [facility] Comment: Cholesterol, Total Reference Ranges Desirable <200 mg/dL Borderline 200-239 mg/dL High >=240 mg/dL TRIGLYCERIDES 95 <150 mg/dL 11/05/2023 11:39 AM CDT [facility] HDL CHOLESTEROL 38(L) >40 mg/dL 11:39 AM CDT [facility] NON-HDL CHOLESTEROL 142 <145 mg/dl 11/05/2023 11:39 AM CDT [facility] CHOL/HDL RATIO 4.74(H) <4.50 11/05/2023 11:39 AM CDT [facility] LDL CHOLESTEROL 123 <=130 mg/dL 11/05/2023 11:39 AM CDT [facility] VLDL CHOLESTEROL 19 <=30 mg/dL 11/05/2023 11:39 AM CDT [facility] PROVIDER ORDERED STATUS RANDOM 11/05/2023 11:39 AM CDT [facility] Blood BLOOD SPECIMEN / Unknown Venipuncture / Unknown 11/05/2023 8:08 AM CDT 11/05/2023 8:10 AM CDT us Phoebe Aguilar NP CHEMISTRY Final Resul t [facility] [address] [place] [address], * LC HCV ANTIBODY RFX TO QUANT PCR (09/05/2022 3:27 PM CDT) Pathologist [facility] HCV Ab Non Reactive Non Reactive 09/09/2022 7:[address] [facility] Blood BLOOD SPECIMEN / Unknown Venipuncture / Unknown 09/05/2022 3:27 PM CDT 09/05/2022 3:29 PM CDT Narrative [facility] - 09/09/2022 7:12 AM CDT Performed at: [address] [place] [id number] Vehicle Calibration Engineer: Juan Mcrae MD, Phone: [phone] [facility] Fin al Result [facility] [address] [place] [address], from Last 3 Months or Most Recently Relevant to Health Maintenance Insurance BLUE [facility] Advance Directives Documents on File Type Date Recorded Patient Spot Welder Body Assembly Expl anation Power of Grapple Yarder Operator 09/07/2020 1:46 PM POWER OF LPC Power of Grapple Yarder Operator 02/02/2020 2:38 PM Alexia Jimenez * Full Code (Latest Code Status on File) Date Activated Date Inactivated Comments 08/05/2017 1:20 PM 08/06/2017 2:56 PM Care Teams Retail Manager In Training Relationship Specialty Start Date End Date Elinor Nguyen MD [facility] [place] [address] PCP - General Family Practice 03/28/24 Sam [employer] [address] [place] [address] Consulting Physician Cardiovascular Disease 08/02/17 [facility] 11/05/18
[2024-07-18 09:05] VITALS: BP 173/126; PULSE 89; RESP 20; TEMP 36.3; O2SAT 98; BMI 30.3
--- NOTE | 2024-07-18 09:40 | ED.GENADULT ---
HPI - General Adult General Chief complaint: Extremity Pain/Injury, Lower Stated complaint: Feet swollen, joint pain Time Seen by Provider: 07/18/24 09:02 History of Present Illness HPI narrative: This is a 53-year-old male comes in reporting aches and pains primarily in his right upper extremity and also in his left leg. He does not report any particular injury event but states that he does work with his arms. He does have restless leg syndrome and is taking medicine to help with that. He does report some pain radiating from his left low back down into his left leg. He has been taking atorvastatin for about a year. Related Data Home Medications ?Medication ?Instructions ?Recorded ?Confirmed amlodipine 10 mg tablet 10 mg PO DAILY 02/22/24 07/18/24 atorvastatin 40 mg tablet 40 mg PO DAILY 02/22/24 07/18/24 carvedilol 12.5 mg tablet 25 mg PO DAILY 02/22/24 07/18/24 esomeprazole magnesium 40 mg 40 mg PO DAILY 02/22/24 07/18/24 capsule,delayed release famotidine 40 mg tablet 40 mg PO DAILY 02/22/24 07/18/24 fluoxetine 40 mg capsule 40 mg PO DAILY 02/22/24 07/18/24 furosemide 20 mg tablet 20 mg PO DAILY 02/22/24 07/18/24 hydroxyzine HCl 50 mg tablet 50 mg PO BID 02/22/24 07/18/24 spironolactone 25 mg tablet 25 mg PO DAILY 02/22/24 07/18/24 gabapentin 300 mg capsule 300 mg PO 3XD 07/18/24 07/18/24 pramipexole 2.25 mg 2.25 mg PO DAILY 07/18/24 07/18/24 tablet,extended release 24 hr Previous Rx's ?Medication ?Instructions ?Recorded cyclobenzaprine 10 mg tablet 10 mg PO TID #15 tabs 07/18/24 ketorolac 10 mg tablet 10 mg PO Q8H 5 days #15 tabs 07/18/24 methylprednisolone 4 mg tablets in See Rx Instructions PO .COMPLEX 07/18/24 a dose pack (Medrol (Trey)) #21 ea Allergies Allergy/AdvReac Type Severity Reaction Status Date / Time bee venom protein (honey bee) Allergy Verified 07/18/24 09:13 spider venom Allergy Verified 07/18/24 09:13 sumatriptan Allergy Verified 07/18/24 09:13 Review of Systems Status of ROS: Reports: 10 or more systems reviewed and unremarkable except as noted in History and below Narrative: Constitutional: No fevers, no weight gain or loss. Eyes: No discharge. No vision changes. HENT: No congestion, no sore throat, no ear pain. Cardiovascular: No chest pain, no palpitations. Respiratory: No shortness of breath, no wheezes, no cough. Gastrointestinal: No abdominal pain, no vomiting, no diarrhea. Genitourinary: No dysuria, no hematuria. Musculoskeletal: Normal range of motion. Diffuse pain in his right elbow region and in his left leg radiating from his low back. Skin: No rashes, no pruritis. Neurological: No dizziness, weakness, sensory change, speech change. Endo/Heme/Allergies: No bruising or bleeding. No polydipsia. Pysch: no suicidality, no anxiety, no insomnia. All other systems reviewed and are negative. [facility] Medical History (Updated 07/18/24 @ 09:45 by Marco A Celaya MD) Cardiomyopathy ?I42.9 - Cardiomyopathy, unspecified (ICD-10) Social History Smoking Status: Current every day smoker How often do you have a drink containing alcohol: never AUDIT-C Alcohol total score: 0 Non-prescribed substance use: marijuana (any form) Exam Narrative: Exam Narrative: Constitutional: Well-developed, well-nourished, no acute distress. HEENT: Normocephalic, atraumatic. Neck: Normal range of motion. Nontender. Supple. Heart: Regular. No murmurs. Normal rate. Intact distal pulses. Lungs: Clear to auscultation. No chest discomfort. No wheezes, rhonchi, or rales. Abdomen: Normal bowel sounds. Nontender. No rebound tenderness. Genitalia: Deferred. Back: No midline tenderness. Normal range of motion. Straight leg raise is positive at about 45? when raising the left leg. Extremities: Normal range of motion. No sign of injury. Skin: Intact. No rash. Warm. No erythema or pallor. Neurologic: No altered sensation. No weakness. Alert and oriented. Psychiatric: No suicidality. No anxiety or depression. No insomnia. Nursing notes and vitals signs are reviewed. Const: Vital Signs, click to edit/add: Vital Signs - 24 hr 07/18/24 09:05 Temperature 97.3 F L Pulse Rate [Pulse Oximeter] 89 Respiratory Rate 20 Blood Pressure [Ri ght Upper Arm] 173/126 H Pulse Oximetry 98 Oxygen Delivery Me thod Room Air Course Vital Signs Vital signs: Initial Vital Signs Temperature 97.3 F L 07/18/24 09:05 Temperature Source Temporal Artery Scan 07/18/24 09:05 Pulse Rate 89 07/18/24 09:05 Respiratory Rate 20 07/18/24 09:05 Blood Pressure 173/126 H 07/18/24 09:05 Blood Pressure Mean 141 H 07/18/24 09:05 Blood Pressure Position Sitting 07/18/24 09:05 Pulse Oximetry 98 07/18/24 09:05 Oxygen Delivery Method Room Air 07/18/24 09:05 Vital Signs Temperature 97.3 F L 07/18/24 09:05 Pulse Rate 89 07/18/24 09:05 Respiratory Rate 20 07/18/24 09:05 Blood Pressure 173/126 H 07/18/24 09:05 Pulse Oximetry 98 07/18/24 09:05 Oxygen Delivery Method Room Air 07/18/24 09:05 Temperature 97.3 F L 07/18/24 09:05 Pulse Rate 89 07/18/24 09:05 Respiratory Rate 20 07/18/24 09:05 Blood Pressure 173/126 H 07/18/24 09:05 Pulse Oximetry 98 07/18/24 09:05 Oxygen Delivery Method Room Air 07/18/24 09:05 Medical Decision Making MDM Narrative Medical decision making narrative: This patient comes in with pains as described above. There was no particular injury event to trigger this. He may be having some overuse injury as he does work with lifting heavier objects at times. He does report some pain radiating from his low back down into his left leg. He also is taking atorvastatin which can cause muscle aches and pains. There is no need for imaging studies at this time as there was no mechanism of injury to require it. The patient did receive prescriptions for Medrol Dosepak, Toradol, and Flexeril. I advised him to hold atorvastatin for a week or 10 days and resume taking it which may give some insight as to possible adverse effects from this medicine. I recommended that he follow-up with his primary physician. Discharge Plan Discharge Clinical Impression: Acute left lumbar radiculopathy Patient Disposition: Home, Self-Care Condition: Unchanged Additional Instructions: Take medication as prescribed. Hold atorvastatin for a week or so and resume as this may be contributing to some leg pain. Follow up with MD for ongoing management and treatment. Prescriptions: New cyclobenzaprine 10 mg tablet 10 mg PO TID Qty: 15 0RF ketorolac 10 mg tablet 10 mg PO Q8H 5 Days Qty: 15 0RF methylprednisolone [Medrol (Trey)] 4 mg tablets,dose pack See Rx Instructions .ROUTE .COMPLEX Qty: 21 0RF Rx Instructions: orally per package directions No Action gabapentin 300 mg capsule 300 mg PO 3XD pramipexole 2.25 mg tablet extended release 24 hr 2.25 mg PO DAILY fluoxetine 40 mg capsule 40 mg PO DAILY atorvastatin 40 mg tablet 40 mg PO DAILY carvedilol 12.5 mg tablet 25 mg PO DAILY famotidine 40 mg tablet 40 mg PO DAILY hydroxyzine HCl 50 mg tablet 50 mg PO BID spironolactone 25 mg tablet 25 mg PO DAILY amlodipine 10 mg tablet 10 mg PO DAILY esomeprazole magnesium 40 mg capsule,delayed release(DR/EC) 40 mg PO DAILY furosemide 20 mg tablet 20 mg PO DAILY Follow Up/Referrals: Provider,Not a Local [Primary Care Provider] - Stand Alone Forms: [employer] [employer] Info Instructions
[2024-07-18 10:14] VITALS: BP 173/126; PULSE 89; RESP 20; TEMP 36.3
== END 2024-07-18 10:15 | disposition home or self-care (01) ==
PROVIDERS: Emergency Provider Emergency Medicine Emergency Medical Services
DX: M54.16 Radiculopathy, lumbar region (principal)
CPT/HCPCS: 99283; 99284

== ENCOUNTER 2024-11-09 22:35 | Emergency (ER) | payer BC, SELFPAY ==
--- OUTSIDE RECORDS SUMMARY | 2023-11-28 10:13 | XMS_ITS | Continuity of Care Document ---
Author Organization [facility] Address [address] [address] [place] [address] Phone Care Team Providers Care Straightener And Aligner Name Role Phone Jp Prajapati MD, Dangelo Unavailable Unavailabl e Advance Directives Directive Yes / No Effective Date File Name No Information Encounters Encounter Description Practice Location Reason(s) For Visit Diagnoses Date Provider Providers Copied on Encounter [facility], [address] [address], [place], [place], [id number], [place] tel:[phone] [facility] No Information Jp Pierson. [address] [facility], [facility] [address], [place], [place], [id number], [place]. tel:[phone] Family History Family Member Type Diagnosis Age At Onset No Information Payers Payer name Insurance type Covered democrat ID Authoriza tion(s) No Information Social History Type Description Quantity Date Captured Comments Sex Male Smoking Status No Information Chief Complaint And Reason For Visit No Information Reason For Referral Reason For Referral No Information History Of Present Illness Encounter Date Complaint History Of Prese nt Illness No Information Functional Status Date Functional Assessmen t No Information Instructions Date Instruction Additional Infor mation No Information Assessments Type Assessment Date No Information Patient Care Teams Name Effective Dates (start - stop) Status Members No Information
--- OUTSIDE RECORDS SUMMARY | 2023-11-28 10:13 | XMS_ITS | Continuity of Care Document ---
Author Organization [facility] Address [address] [address] [place] [address] Phone Care Team Providers Care Pre Billing Specialist Name Role Phone Jp Prajapati MD, Dangelo Unavailable Unavailabl e Advance Directives Directive Yes / No Effective Date File Name No Information Encounters Encounter Description Practice Location Reason(s) For Visit Diagnoses Date Provider Providers Copied on Encounter [facility], [address] [address], [place], [place], [id number], [place] tel:[phone] [facility] No Information Jp Pierson. [address] [facility], [facility] [address], [place], [place], [id number], [place]. tel:[phone] Family History Family Member Type Diagnosis Age At Onset No Information Payers Payer name Insurance type Covered alliance party ID Authoriza tion(s) No Information Social History [...]
[2024-11-09 22:38] VITALS: BP 152/100; PULSE 71; RESP 16; TEMP 36.3; O2SAT 98; BMI 33.0
--- OUTSIDE RECORDS SUMMARY | 2024-11-09 22:38 | XMS_ITS | Clinical Summary ---
Author Organization [facility] Address [address] [place] [address] Care Team Providers Care Stacking Machine Operator Name Role Phone Sam Youendra [facility] Unavailable [facility], [place] Unavailable Unavailable Elinor Nguyen MD Primary Care Prov ider Allergies Active Allergy Reactions Criticality Noted Date Comments Sumatriptan Rash 10/29/2008 Lisinopril Cough 10/10/2017 Mixed Vespid Venom *Unknown 03/05/2017 Venom-Honey Bee Throat Swelling/Closing 010 Bees and wasps Medications NebulizerIndicatio ns:Mild intermittent asthma without complication (HC) Nebulizer, disposable neb kit x 4, reuseable [...] misc miscIndications:Mi ld intermittent asthma without complication (HC) As directed. 1 Each 11/17/19 23 Active albuterol 0.083% (2.5 mg/3 mL) neb solutionIndication s:Mild intermittent asthma without complication (HC) Inhale 3 mL (2.5 mg) via a [...] by mouth three times daily. 270 Capsule 11/05/19 24 Active hydrOXYzine HCL (ATARAX) 50 [...] Tablet by mouth once daily. 90 Tablet 11/05/19 Active spironolactone (ALDACTONE) 25 mg tabletIndications: HTN (hypertension) TAKE 1 TABLET(25 MG) BY MOUTH EVERY DAY 90 Tablet 11/05/19 24 Active rizatriptan (Maxalt-SUBGRADE ROLLER OPERATOR) 10 mg disintegrating tabletIndications: Intractable migraine without [...] daily. 90 Tablet 3 04/08/20 24 Active cyclobenzaprine (FLEXERIL) 10 mg tablet Take 1 Tablet by mouth every 8 hours. 07/18/19 25 Active diclofenac topical (VOLTAREN) 1 % gelIndications:Med ial epicondylitis of right elbow,Lateral epicondylitis of right elbow Apply 4 g topically to affected area(s) four times daily. 200 g 2 08/05/19 25 Active meloxicam 15 mg tabletIndications: Medial epicondylitis of right elbow,Lateral epicondylitis of right elbow Take 1 Tablet (15 mg) by mouth once daily. 30 Tablet 10/15/19 25 Active doxycycline 100 mg tabletIndications: STD exposure Take 1 Tablet (100 mg) by mouth two times daily for 7 days. 14 Tablet 10/20/19 25 025 Hospital, Clinic, or Other Facility Administered Medication Ordered Dose Route Frequency Start Date End Date Status cefTRIAXone (ROCEPHIN) intramuscular injection 500 mgIndications:urinary tract infection 500 mg IM ONE TIME 10/19/2024 10/19/2024 Ended Active Problems Problem Noted Date Diagnosed Date Medial epicondylitis of right elbow 10/14/2024 Lateral epicondylitis of right elbow 10/14/2024 Diverticulosis 04/08/2024 ANGELY (obstructive sleep apnea) 04/08/2024 [...] other - unknown cause - diagnosed at [facility]. HTN (hypertension) 12/14/2010 Migraine, unspecified, witho ut mention of intractable migraine without mention of status migrainosus 12/14/2010 Nephrolithiasis 12/14/2010 Restless legs syndrome 12/14/2010 Resolved Problems Problem Noted Date Diagnosed Date Resolved Date Left wrist pain 06/29/2023 04/08/2024 Environmental allergies 09/10/202210/19 Pre-diabetes 09/10/2022 04/08/2024 SOB (shortness of breath) 06/16/2017 Acute streptococcal pharyngitis 02/14/2016 04/14/2016 Encounters Date Type Department Care Team Description 11/09/2024 1:10 AM CDT - 11/09/2024 6:39 AM CDT Emergency [facility] [address] [place] [address] Lupillo Clemons MD Chest pain, unspecified type (Primary Dx); Dyspnea, unspecified type; Anemia, unspecified type; Congestive heart failure, unspecified HF chronicity, unspecified heart failure type (HC) Discharge Disposition: Home Self Care 11/09/2024 Travel 10/19/2024 2:25 PM CDT Office Visit [facility] [address] [place] [address] Yesica Denny NP STD 10/19/2024 Travel 10/14/2024 10:45 AM CDT Office Visit [facility] [place] [address] [address] [place] [address] Fito Lott MD Results (Right Elbow MRI Results ) 10/14/2024 Travel 10/08/2024 8:00 AM CDT - 10/08/2024 11:59 PM CDT Hospital Encounter [facility] [address] [facility] [place] [address] Fito Lott MD Medial epicondylitis of right elbow; Lateral epicondylitis of right elbow 10/08/2024 Travel 09/24/2024 Telephone [facility] [address] [place] [phone] Fito Lott MD Prior Authorization (MR ELBOW RIGHT WO. PA REQUIRED - PLEASE SIGN 09/23/24 OV NOTE) 09/23/2024 1:45 PM CDT Office Visit [facility] [address] [place] [address] Fito Lott MD Consult (Right Elbow) 09/23/2024 Travel 09/17/2024 1:40 PM CDT Office Visit [facility] [address] [facility] [address] [place] [address] Joan Huang PA Elbow Pain/problem (Right) 09/17/2024 Travel 08/28/2024 Telephone [facility] [address] [place] [address] Elinor Nguyen MD Appointment Reminder (Need to schedule ) 08/27/2024 10:46 AM CDT - 08/27/2024 11:59 PM CDT Hospital Encounter [address] [address] Chuy Dykes PA Foley, Rebecca, OT Right elbow pain; Medial epicondylitis of right elbow; Lateral epicondylitis of right elbow; Tendinopathy of right biceps tendon (distal) 08/27/2024 Travel from Last 3 Months Immunizations Immunization Administration Dates Next Due AMB INFLUENZA, IIV4 (AGE=>6M OS) HALEY (Flu Clinic Only) 06/17/2017 COVID-19 vaccine (Jean Marie-J& J) HALEY TRUONG 08/11/2020 COVID-19 vaccine (Pfizer-Bio NTech 30mcg/0.3mL) PF, MDV 05/26/2021 Influenza A [...] Types Packs/Day Years Used Date Smoking Tobacco: Former Cigarettes 0.3 7 0 08/19/2010 - 08/19/2012 Passive Smoke Exposure: Current Smokeless Tobacco: Never Tobacco Cessation:Counseling Given: Not Answered Comments:limited stress smoking Alcohol Use Standard Drinks/Week [...] or yelled at (see row info)? No 11/09/2024 Interpersonal Safety Abuse 12 - 18 Not on file 11/09/2024 Interpersonal Safety Ambulatory Vulnerability No t on file 11/09/2024 Utilities Answer Date Recorded Do you have trouble paying f or utilities (for example, heat, electricity, water, phone)? 1 11/05/2023 Sex and Gender Information Value Date Recorded Sex Assigned at Male 06/27/2020 1:41 PM ACQUISITIONS LOGISTICS ANALYST Legal Sex Male 7:37 AM ACQUISITIONS LOGISTICS ANALYST Gender Identity Male 06/27/2020 1:41 PM ACQUISITIONS LOGISTICS ANALYST Sexual Orientation Choose not to disclose 2020 1:41 PM ACQUISITIONS LOGISTICS ANALYST Occupation Industry Job Start Date Job End Date student Not on file Not on file Not on file unemployed Not on file Not on file Not on file Obstetrics History Last Filed Vital Signs Vital Sign Reading Time Taken Comments Blood Pressure 139/90 11/09/2024 6:38 AM CDT Pulse 70 11/09/2024 6:38 AM CDT Temperature 36.6 C (97.9 F) 11/09/2024 1:19 AM CDT Respiratory Rate 20 11/09/2024 1:19 AM CDT Oxygen Saturation 100% 11/09/2024 6:38 AM CDT Inhaled Oxygen Concentration - - Weight 103.9 kg (229 lb) 11/09/2024 1:19 AM CDT Height 180.3 cm (5' 11) 11/09/2024 1:19 AM CDT Body Mass Index 31.94 11/09/2024 1:19 AM CDT Plan of Treatment Upcoming Encounters Date Type Department Care Team (Late st Contact Info) Description 12/11/2024 1:00 PM CDT Office Visit [facility] [address] [place] [address] Gerard Yu MD [address] [place] [address] Health Maintenance Due Date Last Done Comments Depression screening for age 12+ 1980 Hepatitis B series for 19+ ( 1 of 3 - 19+ 3-dose series) 10/25/1987 Colonoscopy through age 75 2013 COVID-19 vaccine series ( season) 2024 06/29/2023, 05/26/2021, 08/11/2020 BMI (ht and wt on same day) for age 18+ 11/04/2024 11/05/2023, 09/05/2022, 01/07/2021, Additional history exists Influenza Vaccine (Season Ended) 2025 06/29/2023, 06/29/2023, 02/28/2019, Additional history exists Tetanus booster 08/10/2027 08/09/2017, 01/19/2007 Lipids for age 45-75 11/04/2028 11/05/2023, 09/05/2022, 05/02/2021, Additional history exists Tdap Completed 08/09/2017, 05/2006 (Completed outside of [facility]) Pneumococcal series for age 50+ Completed Zoster (shingles) series for age 50+ Completed 07/18/2023, 08/04/2021 HIV for age 15-65 Completed 10/19/2024, (Verified in Care Everywhere or Patient Record) Hepatitis C screening for ag e 18-79 Completed 10/19/2024, 09/05/2022 Procedures Procedure Name Priority Date/Time Associated Diagnosis Comments TROPONIN T (HS) ONE TIME Timed 11/09/2024 3:33 AM CDT SCAN-CARDIAC STRIP 11/09/2024 3: 20 AM CDT SCAN-CARDIAC STRIP 11/09/2024 3: 18 AM CDT SCAN-CARDIAC STRIP 11/09/2024 3: 14 AM CDT SCAN-CARDIAC STRIP 11/09/2024 3: 10 AM CDT SCAN-CARDIAC STRIP 11/09/2024 3: 04 AM CDT SCAN-CARDIAC STRIP 11/09/2024 3: 01 AM CDT XR CHEST 2 VIEWS PA AND LATERAL STAT 11/09/2024 1:45 AM CDT PLATELET ESTIMATE STAT 11/09/2024 1:2 9 AM CDT RED CELL MORPHOLOGY STAT 11/09/2024 1 :29 AM CDT PRO-BNP STAT 11/09/2024 1:29 AM CDT TROPONIN T (HS) ACUTE W/2HR REFLEX STAT 11/09/2024 1:29 AM CDT BASIC METABOLIC PANEL STAT 11/09/2024 1:29 AM CDT CBC W PLT NO DIFF STAT 11/09/2024 1:2 9 AM CDT EKG 12 LEAD STAT 11/09/2024 1:20 AM CDT ANTI HIV 1/2 Routine 10/19/2024 2:54 PM CDT Screen for STD (sexually transmitted disease) ANTI HCV Routine 10/19/2024 2:54 PM CDT Screen for STD (sexually transmitted disease) HBSAG (HBS) Routine 10/19/2024 2:54 PM CDT Screen for STD (sexually transmitted disease) TRICHOMONAS AMPLIFIED PROBE Add On 10/19/2024 2:52 PM CDT Screen for STD (sexually transmitted disease) STD exposure URINALYSIS MICROSCOPIC STAT 10/19/2024 2:52 PM CDT Screen for STD (sexually transmitted disease) URINE CULTURE STAT 10/19/2024 2:52 PM CDT Screen for STD (sexually transmitted disease) UA W/ SEDIMENT EXAM REFLEXED PER CRITERIA STAT 10/19/2024 2:52 PM CDT Screen for STD (sexually transmitted disease) GC CHLAMYDIA TRACH PROBE Routine 10/19/2024 2:52 PM CDT Screen for STD (sexually transmitted disease) TREPONEMA PALLIDUM Routine 10/19/2024 2: 52 PM CDT Screen for STD (sexually transmitted disease) MR ELBOW RIGHT WO Routine 10/08/2024 8:4 5 AM CDT Medial epicondylitis of right elbow Lateral epicondylitis of right elbow LIPID PANEL W REFLEX MEASURED LDL Routine 11/05/2023 8:08 AM CDT HTN (hypertension) from Last 3 Months or Most Recently Relevant to Health Maintenance Results * (ABNORMAL) TROPONIN T (HS) ONE TIME (11/09/2024 3:33 AM CDT) TROPONIN T HS 21(H) 6-15 ng/L ng/L 11/09/2024 3:58 AM CDT [facility] Blood BLOOD SPECIMEN / Unknown Venipuncture / Unknown 11/09/2024 3:33 AM CDT 11/09/2024 3:36 AM CDT us Lupillo Clemons MD CHEMISTRY Final R esult [facility] [address] [place] [address] * SCAN-CARDIAC STRIP (11/09/2024 3:20 AM CDT) us Scanner OTHER Final Result * SCAN-CARDIAC STRIP (11/09/2024 3:18 AM CDT) us Scanner OTHER Final Result * SCAN-CARDIAC STRIP (11/09/2024 3:14 AM CDT) us Scanner OTHER Final Result * SCAN-CARDIAC STRIP (11/09/2024 3:10 AM CDT) us Scanner OTHER Final Result * SCAN-CARDIAC STRIP (11/09/2024 3:04 AM CDT) us Scanner OTHER Final Result * SCAN-CARDIAC STRIP (11/09/2024 3:01 AM CDT) us Scanner OTHER Final Result * XR CHEST 2 VIEWS PA AND LATERAL (11/09/2024 1:45 AM CDT) Anatomical Region Laterality Modality CHEST, THORAX, Lung, HEART Digit al Radiography 11/09/2024 2:15 AM CDT Impressions 11/09/2024 2:15 AM CDT No acute findings. Dictated by Jean Flood MD @ 11/09/2024 2:15:17 AM (Electronically Signed) Narrative 11/09/2024 2:15 AM CDT For Patients: As a result of the Cures Act, medical imaging exams and procedure reports are released immediately into your electronic medical record. You may view this report before your referring provider. If you have questions, please contact your health care provider. INDICATION: Chest pain. TECHNIQUE: Chest 2 views. COMPARISON: No 11/15/2022 ne. FINDINGS: Cardiovascular and mediastinum: Heart size is normal. Unremarkable mediastinum. Lungs and pleural spaces: Mild right basilar atelectasis or scarring. No sign of infiltrate or mass. No sign of pleural effusion. No pneumothorax. Bones and soft tissues: No significant findings. Procedure Note Jean Flood MD - 11/09/2024 For Patients: As a result of the Cures Act, medical imagingexams and procedure reports are released immediately into your electronicmedical record. You may view this report before your referring provider.If you have questions, please contact your health care provider. INDICATION: Chest pain. TECHNIQUE: Chest 2 views. COMPARISON: No 11/15/2022 ne. FINDINGS: Cardiovascular and mediastinum: Heart size is normal. Unremarkablemediastinum. Lungs and pleural spaces: Mild right basilar atelectasis or scarring. Nosign of infiltrate or mass. No sign of pleural effusion. Nopneumothorax. Bones and soft tissues: No significant findings. IMPRESSION: No acute findings. Dictated by Jean Flood MD @ 11/09/2024 2:15:17 AM (Electronically Signed) Lupillo Clemons MD GENERAL IMAGING Final R esult * (ABNORMAL) TROPONIN T (HS) ACUTE W/2HR REFLEX (11/09/2024 1:29 AM CDT) TROPONIN T HS 24(H) 6-15 ng/L ng/L 11/09/2024 2:00 AM CDT [facility] Blood BLOOD SPECIMEN / Unknown IV Start / Unknown 11/09/2024 1:29 AM CDT 11/09/2024 1:31 AM CDT [facility] - 11/09/2024 2:00 AM CDT hs-cTnT (Elecsys Troponin T Gen 5) concentration (s) above the sex-specific 99th percentile (16 ng/L or greater for males or 11 ng/L or greater for females) are indicative of myocardial injury. If initial hs-cTnT <=100 ng/L at presentation, a 0h/2h ABSOLUTE (ng/L) delta change (rising or falling) of >=10 ng/L suggests a significant change, whereas a 0h/2h delta change <=3 ng/L suggests no significant change. If initial hs-cTnT >100 ng/L at presentation, a 0h/2h/ RELATIVE (percent, %) delta change of 20% is suggested to distinguish patients with acute vs. chronic myocardial injury. There are multiple etiologies that can cause hs-cTnT increases above the 99th percentile (myocardial injury) other than acute myocardial infarction. Clinical context and careful clinical evaluation are critical for diagnosis and risk-stratification. The diagnosis of acute myocardial infarction requires a rising and/or falling pattern in hs-cTnT concentrations with at least one value above the sex-specific 99th percentile PLUS at least one of the following clinical criteria: ischemic symptoms, new or presumed new significant ST-T wave changes or new LBBB, development of pathological Q waves, imaging evidence of new loss of viable myocardium or new regional wall motion abnormality, or identification of intracoronary atherothrombosis or an acute angiographic culprit on coronary angiography. In appropriate low-risk patients with a non-ischemic electrocardiogram without active chest pain with a symptom onset >3-hours without recurrence, a single initial hs-cTnT<6 ng/L identifies patient with a very low risk in emergency department patient population. Lupillo Clemons MD CHEMISTRY Final [facility] Performing Organization Address [facility] de Phone Number [facility] [address] [place] [phone] * (ABNORMAL) RED CELL MORPHOLOGY (11/09/2024 1:29 AM CDT) ELLIPTOCYTES Few 11/09/2024 2:21 AM CDT [facility] TARGET CELLS Few 11/09/2024 2:21 AM CDT [facility] RBC COMMENT Present(A ) RBC morphology appears normal, RBC morphology within normal limits for newborns. 11/09/2024 2:21 AM CDT [facility] Blood BLOOD SPECIMEN / Unknown IV Start / Unknown 11/09/2024 1:29 AM CDT 11/09/2024 1:31 AM CDT Lupillo Clemons MD HEMATOLOGY Final R esult Performing Organization Address [facility] de Phone Number [facility] [address] [place] [address] * PLATELET ESTIMATE (11/09/2024 1:29 AM CDT) PLATELET ESTIMATE Adequate Adequate, No estimate 11/09/2024 2:21 AM CDT [facility] Blood BLOOD SPECIMEN / Unknown IV Start / Unknown 11/09/2024 1:29 AM CDT 11/09/2024 1:31 AM CDT Lupillo Clemons MD HEMATOLOGY Final R esult Performing Organization Address [facility] Co de Phone Number [facility] [address] [place] [phone] * (ABNORMAL) CBC W PLT NO DIFF (11/09/2024 1:29 AM CDT) WHITE BLOOD COUNT 7.3 4.5 - 11.0 thou/cu mm 11/09/2024 2:21 AM T [facility] RED BLOOD COUNT 4.86 4.30 - 5.90 mil/cu mm 11/09/2024 2:21 AM [facility] HEMOGLOBIN 10.5(L) 13.5 - 17.5 g/dL 11/09/2024 2:21 AM [facility] HEMATOCRIT 35.4(L) 37.0 - 53.0 % 11/09/2024 2:21 AM [facility] MCV 73(L) 80 - 100 fL 11/09/2024 2:21 AM [facility] MCH 21.6(L) 26.0 - 34.0 pg 11/09/2024 2:21 AM [facility] MCHC 29.7(L) 32.0 - 36.0 g/dL 11/09/2024 2:21 AM [facility] RDW 21.0(H) 11.5 - 15.5 % 11/09/2024 2:21 AM [facility] PLATELET COUNT 232 140 - 440 thou/cu mm 11/09/2024 2:21 AM [facility] MPV 10.7 6.5 - 11.0 fL 11/09/2024 2:21 AM [facility] Blood BLOOD SPECIMEN / Unknown IV Start / Unknown 11/09/2024 1:29 AM CDT 11/09/2024 1:31 AM CDT us Lupillo Clemons MD HEMATOLOGY Final R esult [facility] [address] [place] [address] * (ABNORMAL) PRO-BNP (11/09/2024 1:29 AM CDT) PRO-BNP 1,573(H) <125 pg/mL 11/09/2024 2:03 AM T [facility] Blood BLOOD SPECIMEN / Unknown IV Start / Unknown 11/09/2024 1:29 AM CDT 11/09/2024 1:31 AM CDT [facility] - 11/09/2024 2:03 AM CDT The following cut-points have been suggested for the use of proBNP for the diagnostic evaluation of heart failure (HF) in patient with acute dyspnea. Patients with eGFR >= 60 Diagnosis (rule in CHF) <50 Years Old 450 pg/mL 50 - 75 Years Old 900 pg/mL >75 Years Old 1800 pg/mL Exclusion (rule out CHF) Age Independent 300 pg/mL A cutoff of 1200 pg/mL for patients with an eGFR <60 yields a diagnostic sensitivity of 89% and specificity of 72% for acute congestive heart failure. Lupillo Clemons MD SEND OUTS Final R esult [facility] [address] [place] [address] * (ABNORMAL) BASIC METABOLIC PANEL (11/09/2024 1:29 AM CDT) SODIUM 139 136 - 145 mmol/L 11/09/2024 2:00 AM T [facility] POTASSIUM 3.7 3.5 - 5.1 mmol/L 11/09/2024 2:00 AM T [facility] CHLORIDE 105 98 - 107 mmol/L 11/09/2024 2:00 AM [facility] CO2,TOTAL 24 22 - 29 mmol/L 11/09/2024 2:00 AM [facility] ANION GAP 10 5 - 18 11/09/2024 2:00 AM T [facility] GLUCOSE 109(H) 70 - 99 mg/dL 11/09/2024 2:00 AM T [facility] CALCIUM 9.0 8.8 - 10.4 mg/dL 11/09/2024 2:00 AM [facility] Comment: Reference ranges for this test were updated on 03/25/2024 to reflect our healthy population more accurately. Reference range changes are not retroactively applied to results, but previous results using the same methodology can be interpreted in the context of the new reference range. BUN 8 6 - 20 mg/dL 11/09/2024 2:00 AM [facility] CREATININE 1.17 0.70 - 1.20 mg/dL 11/09/2024 2:00 AM [facility] BUN/CREAT RATIO 7(L) 10 - 20 2:00 AM [facility] eGFR 73(L) >90 mL/min/1. 73m2 11/09/2024 2:00 AM [facility] Comment:As of 2021, eG FR is calculated by the CKD-EPI creatinine equation without race adjustment. eGFR can be influenced by muscle mass, exercise, and diet. The reported eGFR is an estimation only and is only applicable if the renal function is stable. Blood BLOOD SPECIMEN / Unknown IV Start / Unknown 11/09/2024 1:29 AM CDT 11/09/2024 1:31 AM CDT us Lupillo Clemons MD CHEMISTRY Final R esult [facility] [address] [place] [address] * EKG 12 LEAD (11/09/2024 1:20 AM CDT) Interpretation Normal sinus rhythm Possible Left atrial enlargement Left ventricular hypertrophy Abnormal ECG When compared with ECG of 04-Apr-2019 13:56, Nonspecific T wave abnormality, improved in Lateral leads BEYOND NOW Ventricular Rate 67 BPM BEYOND NOW Atrial Rate 67 BPM BEYOND NOW P-R Interval 190 ms BEYOND NOW QRS Duration 96 ms BEYOND NOW QT 438 ms BEYOND NOW QTc 462 ms BEYOND NOW P [place] 66 degrees BEYOND NOW R [place] 26 degrees BEYOND NOW T [place] 62 degrees BEYOND NOW 11/09/2024 1:20 AM CDT 11/09/2024 5:13 AM CDT Lupillo Clemons MD EKG ORD Final R esult Performing Organization Address [facility] Co de Phone Number BEYOND NOW [place], [place] * HBSAG (HBS) [52067.2] (10/19/2024 2:54 PM CDT) HEPATITIS B SURFACE ANTIGEN NON-REACTI VE NON-REACTI VE [facility] Comment: For additional information, please refer to http://Think Sky/faq/TQU965 (This link is being provided for informational/ educational purposes only.) Blood BLOOD SPECIMEN / Unknown 10/19/2024 2:54 PM CDT 10/19/2024 2:55 PM CDT Yesica Denny NP SEND OUTS Final Result Performing Organization Address [facility] de Phone Number [facility] [address] [place] [address], [facility] [address] [place] [address] * ANTI HCV [36601.2] (10/19/2024 2:54 PM CDT) HEPATITIS C ANTIBODY NON-REACTI VE NON-REACT JASON [facility] Comment: HCV antibody was non-reactive. There is no laboratory evidence of HCV infection. In most cases, no further action is required. However, if recent HCV exposure is suspected, a test for HCV RNA (test code 16398) is suggested. For additional information please refer to http://Understory.[employer]/faq/WJB84p1 (This link is being provided for informational/ educational purposes only.) Blood BLOOD SPECIMEN / Unknown 10/19/2024 2:54 PM CDT 10/19/2024 2:55 PM CDT us Yesica Denny TREER SEND OUTS Final Result Performing Organization Address [facility]/State/ZIP Co de Phone Number [facility] [address] [place] [address], [facility] [address] [place] [address] * ANTI HIV 1/2 [87839.0] (10/19/2024 2:54 PM CDT) [facility] HIV AG/AB, 4TH GEN NON-REACT JASON NON-REACT JASON [employer] [facility] Comment: HIV-1 antigen and HIV-1/HIV-2 antibodies were not detected. There is no laboratory evidence of HIV infection. PLEASE NOTE: This information has been disclosed to you from records whose confidentiality may be protected by state law. If your state requires such protection, then the state law prohibits you from making any further disclosure of the information without the specific written consent of the person to whom it pertains, or as otherwise permitted by law. A general authorization for the release of medical or other information is NOT sufficient for this purpose. For additional information please refer to http://education.ADIKTIVO.BURLESQUICEOUS/faq/DDC174 (This link is being provided for informational/ educational purposes only.) The performance of this assay has not been clinically validated in patients less than 2 years old. Blood BLOOD SPECIMEN / Unknown 10/19/2024 2:54 PM CDT 10/19/2024 2:55 PM CDT us Yesica Denny TREER SEND OUTS Final Result [facility] [address] [place] [address], [facility] [address] [place] [address] * TRICHOMONAS AMPLIFIED PROBE (10/19/2024 2:52 PM CDT) TRICHOMONAS AMPLIFIED PROBE Negative 10/21/2024 12:04 PM CDT [facility] Other URINE SPECIMEN / Unknown Non-Blood / Unknown 10/19/2024 2:52 PM CDT 10/19/2024 3:35 PM CDT us Yesica Denny TREER MICROBIOLOGY Final Result Performing Organization Address City/[facility]/ZIP Co de Phone Number [facility] [address] [address], [place] * TREPONEMA PALLIDUM [[id number]] (10/19/2024 2:52 PM CDT) Pathologist [facility] TREPONEMA PALLIDUM Non-Reacti ve Non-Reacti ve 10/19/2024 9:39 PM CDT [facility] Blood BLOOD SPECIMEN / Unknown [facility] / Unknown 10/19/2024 2:52 PM CDT 10/19/2024 2:53 PM CDT us Yesica Denny NP SEND OUTS Final Result Performing Organization Address City/[facility]/ZIP Co de Phone Number [facility] [address] [place] [address], [place] * (ABNORMAL) URINALYSIS MICROSCOPIC (10/19/2024 2:52 PM CDT) RBC None Seen 0-2, None Seen /HPF 10/19/2024 3:20 PM CDT [facility] WBC 11-25(A) 0-2, 3-5, None Seen /HPF 10/19/2024 3:20 PM CDT [facility] BACTERIA Few None Seen, Rare, Few Bacteria/ HPF 10/19/2024 3:20 PM CDT [facility] EPITHELIAL CELLS Few None Seen, Few Epi/HPF 10/19/2024 3:20 PM CDT [facility] Urine URINE SPECIMEN / Unknown Non-Blood / Unknown 10/19/2024 2:52 PM CDT 10/19/2024 2:53 PM CDT us Yesica Denny NP URINE Final Result Performing Organization Address City/[facility]/ZIP Co de Phone Number [facility] [address] [place] [address] * (ABNORMAL) GC Chlamydia [[id number]] - Urine (10/19/2024 2:52 PM CDT) CHLAMYDIA PROBE Negative 2:48 PM CDT [facility] N GONORRHOEAE PROBE Positive(A) 10/20/2024 2:[address] [facility] Other URINE SPECIMEN / Unknown Non-Blood / Unknown 10/19/2024 2:52 PM CDT 10/19/2024 2:53 PM CDT us Yesica Denny NP MICROBIOLOGY Final Result Performing Organization Address [facility] Co de Phone Number [facility] [address] [address], [place] * URINE CULTURE [[id number]] - STAT (10/19/2024 2:52 PM CDT) CULTURE No growth (<1,000 CFU/mL) 10/20/2024 8:16 PM CDT [facility] Urine URINE SPECIMEN / Unknown Non-Blood / Unknown 10/19/2024 2:52 PM CDT 10/19/2024 2:53 PM CDT us Yesica Denny NP MICROBIOLOGY Final Result Performing Organization Address City/[facility]/ZIP Co de Phone Number [facility] [address] [place] [address], [place] * (ABNORMAL) UA W/ SEDIMENT EXAM REFLEXED PER CRITERIA [[id number]] - STAT (10/19/2024 2:52 PM CDT) COLOR Yellow Yellow Color 10/19/2024 3:18 PM T [facility] CLARITY Clear Clear Clarity 10/19/2024 3:18 PM T [facility] SPECIFIC GRAVITY,URINE >=1.030(A) 1.010, 1.015, 1.020, 1.025 10/19/2024 3:18 PM [facility] PH,URINE 5.5 6.0, 7.0, 8.0, 5.5, 6.5, 7.5, 8.5 10/19/2024 3:18 PM [facility] UROBILINOGEN, QUALITATIVE Normal Normal EU/dl 10/19/2024 3:18 PM [facility] PROTEIN, URINE Negative Negative mg/dL 10/19/2024 3:18 PM T [facility] GLUCOSE, URINE Negative Negative mg/dL 10/19/2024 3:18 PM [facility] KETONES,URINE Trace(A) Negative mg/dL 10/19/2024 3:18 PM [facility] BILIRUBIN,URI NE Negative Negative 10/19/2024 3:18 PM [facility] OCCULT BLOOD,URINE Negative Negative 10/19/2024 3:18 PM [facility] NITRITE Negative Negative 10/19/2024 3:18 PM [facility] LEUKOCYTE ESTERASE Small(A) Negative 10/19/2024 3:18 PM [facility] Urine URINE SPECIMEN / Unknown Non-Blood / Unknown 10/19/2024 2:52 PM CDT 10/19/2024 2:53 PM CDT Yesica Denny TREER URINE Final Result [facility] [address] [place] [address] * MR ELBOW RIGHT WO CONTRAST (10/08/2024 8:45 AM CDT) Anatomical Region Laterality Modality ELBOW R Magnetic Resonan ce 10/08/2024 3:26 PM CDT Impressions 10/08/2024 3:26 PM CDT 1. Moderate medial epicondylitis mucoid degeneration and partial tearing common extensor tendon origin. Dictated by Gerard Kirby MD @ 10/08/2024 3:26:49 PM (Electronically Signed) Narrative 10/08/2024 3:26 PM CDT For Patients: As a result of the Cures Act, medical imaging exams and procedure reports are released immediately into your electronic medical record. You may view this report before your referring provider. If you have questions, please contact your health care provider. EXAM: MRI OF THE RIGHT ELBOW, WITHOUT CONTRAST CLINICAL INDICATION: Elbow pain. PRIOR SURGERY: None. COMPARISON PLAIN FILMS: 04 August 2024. COMPARISON CROSS-SECTIONAL IMAGING STUDIES: None. TECHNICAL: Axial, sagittal and coronal T1, PD, PDFS and STIR images. FINDINGS: MYOTENDINOUS STRUCTURES: Triceps: Normal. Biceps: Intact. No tendinosis, tendon tear or bicipitoradial bursitis. Brachialis: No strain or tear. Supinator: No strain or tear. Common Extensor Tendon and Forearm Extensors: Intermediate to near fluid T2 and STIR signal in the substance of mildly expanded partially torn common extensor tendon origin. Small amount of edema in the periarticular proximal undersurface of the muscle. No atrophy. Common Flexor Tendon and Forearm Flexors: No tendon tear, tendinosis or muscle strain. Accessory Anconeus: Not present. ELBOW JOINT: Effusion: Physiologic quantity of joint fluid. No abnormal synovial thickening or synovitis. Articular Cartilage: No cartilage defect or osteochondral abnormality. Loose Bodies: None seen. Radiohumeral Plica: No pathologic thickening or enlargement. Periarticular Ganglion/Cyst: None present. BONES: Humerus: No fracture, marrow edema or marrow replacement process. Ulna: No fracture, marrow edema or marrow replacement process. Radius: No fracture, marrow edema or marrow replacement process. LIGAMENTS: Ulnar Collateral: The ulnar collateral ligament is intact. Radial Collateral: The radial collateral ligament is intact. Lateral Ulnar Collateral: The lateral ulnar collateral ligament is intact. NERVES: Ulnar: Normal; without thickening, edema, mass or subluxation. Median: Normal. Radial: Normal. OTHER FINDINGS: There is no soft tissue mass or fluid collection. Procedure Note Gerard Kirby MD - 10/08/2024 For Patients: As a result of the 21st Century Cures Act, medical imagingexams and procedure reports are released immediately into your electronicmedical record. You may view this report before your referring provider.If you have questions, please contact your health care provider. EXAM: MRI OF THE RIGHT ELBOW, WITHOUT CONTRAST CLINICAL INDICATION: Elbow pain. PRIOR SURGERY: None. COMPARISON PLAIN FILMS: 04 August 2024. COMPARISON CROSS-SECTIONAL IMAGING STUDIES: None. TECHNICAL: Axial, sagittal and coronal T1, PD, PDFS and STIR images. FINDINGS: MYOTENDINOUS STRUCTURES: Triceps: Normal. Biceps: Intact. No tendinosis, tendon tear or bicipitoradial bursitis. Brachialis: No strain or tear. Supinator: No strain or tear. Common Extensor Tendon and Forearm Extensors: Intermediate to near fluidT2 and STIR signal in the substance of mildly expanded partially torncommon extensor tendon origin. Small amount of edema in the periarticularproximal undersurface of the muscle. No atrophy. Common Flexor Tendon and Forearm Flexors: No tendon tear, tendinosis ormuscle strain. Accessory Anconeus: Not present. ELBOW JOINT: Effusion: Physiologic quantity of joint fluid. No abnormal synovialthickening or synovitis. Articular Cartilage: No cartilage defect or osteochondral abnormality. Loose Bodies: None seen. Radiohumeral Plica: No pathologic thickening or enlargement. Periarticular Ganglion/Cyst: None present. BONES: Humerus: No fracture, marrow edema or marrow replacement process. Ulna: No fracture, marrow edema or marrow replacement process. Radius: No fracture, marrow edema or marrow replacement process. LIGAMENTS: Ulnar Collateral: The ulnar collateral ligament is intact. Radial Collateral: The radial collateral ligament is intact. Lateral Ulnar Collateral: The lateral ulnar collateral ligament isintact. NERVES: Ulnar: Normal; without thickening, edema, mass or subluxation. Median: Normal. Radial: Normal. OTHER FINDINGS: There is no soft tissue mass or fluid collection. IMPRESSION: 1. Moderate medial epicondylitis mucoid degeneration and partial tearingcommon extensor tendon origin. Dictated by Gerard Kirby MD @ 10/08/2024 3:26:49 PM (Electronically Signed) us Fito Lott MD MR Final Resul t * (ABNORMAL) LIPID PANEL W REFLEX MEASURED LDL (11/05/2023 8:08 AM CDT) CHOLESTEROL,TOTAL 180 100 - 199 mg/dL 11/05/2023 11:39 AM CDT [facility] Comment: Cholesterol, Total Reference Ranges Desirable <200 mg/dL Borderline 200-239 mg/dL High >=240 mg/dL TRIGLYCERIDES 95 <150 mg/dL 11/05/2023 11:39 AM CDT [facility] HDL CHOLESTEROL 38(L) >40 mg/dL 11:39 AM CDT [facility] NON-HDL CHOLESTEROL 142 <145 mg/dl 11/05/2023 11:39 AM CDT [facility] CHOL/HDL RATIO 4.74(H) <4.50 11/05/2023 11:39 AM CDT [facility] LDL CHOLESTEROL 123 <=130 mg/dL 11/05/2023 11:39 AM CDT [facility] VLDL CHOLESTEROL 19 <=30 mg/dL 11/05/2023 11:39 AM CDT [facility] PROVIDER ORDERED STATUS RANDOM 11/05/2023 11:39 AM T [facility] Blood BLOOD SPECIMEN / Unknown Venipuncture / Unknown 11/05/2023 8:08 AM CDT 11/05/2023 8:10 AM CDT us Phoebe Aguilar TREER CHEMISTRY Final Resul t [facility] [address] [place] [address], from Last 3 Months or Most Recently Relevant to Health Maintenance Insurance [facility] [id number] [place] [id number] Advance Directives Documents on File Type Date Recorded Patient Regeneration Operator Expl anation Power of Individualized Education Plan Aide 09/07/2020 1:46 PM POWER OF SPORTS LAWYER Power of Individualized Education Plan Aide 02/02/2020 2:38 PM Alexia Jimenez * Full Code (Latest Code Status on File) Date Activated Date Inactivated Comments 08/05/2017 1:20 PM 08/06/2017 2:56 PM Care Teams Stacking Machine Operator Relationship Specialty Start Date End Date Elinor Nguyen MD [address] [place] [address] PCP - General Family Practice 03/28/24 Sam You MBBS [address] [place] [address] Consulting Physician Cardiovascular Disease 08/02/17 [facility] 11/05/18
--- OUTSIDE RECORDS SUMMARY | 2024-11-09 22:38 | XMS_ITS | Patient Health Record ---
Author Organization [facility] [employer] - Primary Address [address] [place] [id number] Care Team Providers Care Subcontracts Manager Name Role Phone Different, PCP Primary Care [...] 300 mg TAKE 1 CAPSULE BY MO [facility] AT BEDTIME FOR RESTLESS LEGS for 30 [...] (primary) hypertension (I10) Active confirmed Essential hypertension (90066078) Problem Restless legs syndrome (G25.81) Active confirmed Restless l egs syndrome (18885128) Problem Nicotine dependence, cigarettes, uncomplicated (F17.210) Active confirmed Problem Chronic pain syndrome (G89.4) Active confirmed Chronic valeriano n syndrome (479799225) PLAN OF TREATMENT No Information Insurance Providers Payer Name Payer Address Payer Phone Subscriber Number Group Number Insured Name Patient Relationship to Insured Coverage Start Date Coverage End Date BCBS BP [place] [address] [address] [place] [address] [id number] [facility] Richard Bonilla Self - patient is the insured MEDICAL (GENERAL) HISTORY Medical History History ICD Code chronic pain Anxiety arthritis RLS Surgical History Surgery Date(Month/Year)
[2024-11-09 23:17] LABS: HCO3 VBG 28 mmol/L (21-28); PCO2 VBG 42 mmHG (40-50); PO2 VBG 56.6 mmHG (25-47); pH VBG 7.441 (7.32-7.43)
[2024-11-09 23:20] VITALS: BP 152/115; PULSE 87; RESP 18; O2SAT 96
[2024-11-09 23:20] LABS: Basophils Absolute Auto 0.03 K/uL (0.00-0.30); Basophils Percent Auto 0.6 % (0.0-3.0); Eosinophils Absolute Auto 0.28 K/uL (0.00-0.50); Eosinophils Percent Auto 5.1 % (0.0-7.0); Hematocrit 38.3 % (37.0-53.0); Hemoglobin* 11.4 gm/dL (13.5-17.5); Immature Granulocytes Abs Auto 0.01 K/uL (0.00-0.30); Immature Granulocytes Pct Auto 0.2 %; Lymphocytes Absolute Auto 2.35 K/uL (0.90-2.90); Lymphocytes Percent Auto 43.1 % (20-44); Mean Corpuscular HGB Conc 30 gm/dL (32-36); Mean Corpuscular Hemoglobin 22 pg (26-34); Mean Corpuscular Volume 74 fL (80-100); Monocytes Percent Auto 9.7 % (0.0-11.0); Neutrophils Percent Auto 41.3 % (42.0-72.0); Platelet Count* 263 K/uL (140-440); Red Blood Count 5.21 m/uL (4.30-5.90); White Blood Count* 5.45 K/uL (4.50-11.00)
[2024-11-09 23:22] LABS: Slide Review Reflex No
--- OUTSIDE RECORDS SUMMARY | 2024-11-09 23:23 | XMS_ITS | Clinical Summary ---
Author Organization [facility] er Address [address] [place] [address] Care Team Providers Care Low Pressure Boiler Operator Name Role Phone Freddy Hancock Primary Care [...] each day 30 tablet 1 06/29/19 24 Active aspirin 81 MG EC tabletIndications:C ardiomyopathy, unspecified type (HCC) Take 1 tablet (81 mg total) by mouth 1 (one) time each day 30 tablet 1 06/29/19 24 Active atorvastatin (LIPITOR) 40 MG tabletIndications:C ardiomyopathy, unspecified type (HCC) Take 1 tablet (40 mg total) by mouth every night 30 tablet 1 06/29/19 24 Active carvedilol (COREG) 25 MG tabletIndications:B enign essential hypertension Take 1 tablet (25 mg total) by mouth 2 (two) times a day with meals 60 tablet 1 06/29/19 24 Active EPINEPHrine (EpiPen 2-Trey) 0.3 MG/0.3ML injection syringeIndications: 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 Call 911 after use. 2 each 06/29/19 24 Active fexofenadine (DEEPA) 180 MG tabletIndications:A llergic rhinitis, unspecified seasonality, unspecified trigger Take 1 tablet (180 mg total) by mouth 1 (one) time each day 30 tablet 1 06/29/19 24 Active furosemide (LASIX) 20 MG tabletIndications:C ardiomyopathy, unspecified type (HCC) Take 2 tablets (40 mg total) by mouth 1 (one) time each day 60 tablet 1 06/29/19 24 Active losartan (COZAAR) 25 MG tabletIndications:B enign essential hypertension Take 1 tablet (25 mg total) by mouth 1 (one) time each day 30 tablet 1 06/29/19 24 Active Pramipexole Dihydrochloride ER 2.25 MG tablet sustained-release 24 hourIndications:Res tless legs syndrome Take 2.25 mg by mouth at bed time 30 tablet 1 06/29/19 24 Active rizatriptan CIRCULATION SALES REPRESENTATIVE (MAXALT-CIRCULATION SALES REPRESENTATIVE) 10 MG dispersible tabletIndications:M igraine without status migrainosus, not intractable, unspecified migraine type Take 1 tablet (10 mg total) by mouth 1 (one) time if needed for migraine 9 tablet 06/29/19 24 Active spironolactone (ALDACTONE) 25 MG tabletIndications:B enign essential hypertension Take 1 tablet (25 mg total) by mouth 1 (one) time each day 30 tablet 1 06/29/19 24 Active nicotine polacrilex (Nicorette) 4 MG gumIndications:Huseyin [...] of breath 18 g 1 07/12/19 24 Active Active Problems Problem Noted Date [...] other - unknown cause - diagnosed at [facility]. History reported by patient's significant other - unknown cause - diagnosed at [facility]. HTN (hypertension) 12/14/2010 Migraine headache 12/14/2010 Nephrolithiasis 12/14/2010 Restless legs syndrome 12/14/2010 Resolved Problems Problem Noted Date Diagnosed Date Resolved Date Acute systolic heart failure 06/21/2017 07/18/2021 Immunizations Immunization Administration Dates Next Due COVID-19, mRNA, LNP-s, PF, caroline-succrose, 30mcg/0.3mL, COMIRNATY Ages 12+ 06/29/2023 H1N1 All Forms 05/31/2009 H1N1 Inj 05/31/2009 INFLUENZA QUADRIVALENT MDV (IM) 06/29/19 24,02/28/2019,06/17/2017,2014 Influenza, Split Virus, Triv alent, Preservative 05/31/2009 Influenza, Trivalent, PF 05/31/2009 Influenza, Unspecified 02/28/2019,06/17/2017, PPD Test 07/18/2021 Pneumococcal Conjugate PCV20 07/18/2023 SARS-COV-2 (COVID-19) vaccin e, vector non-replicating, recombinant spike protein- Ad26, preservative free, 0.5mL ([employer]) 08/11/2020 Td 01/19/2007 Tdap 08/09/2017 Zoster Recombinant [...] week 06/29/2023 How often do you attend [facility] or jehovah's witness services? 1 to 4 times per year 06/29/2023 Do you belong to any clubs o r organizations such as orthodoxy groups, unions, fraternal or athletic groups, or [...] Date Recorded PHQ-9 Total Score 7 06/29/2023 [facility] - Occupational Stress Questionnaire Answer Date Recorded [...] place to sleep or slept in a nursing home (including now)? Patient declined 06/29/2023 Sex and Gender Information Value Date Recorded Sex Assigned at Not on file Legal Sex Male 2:08 PM SCRIP CLERK Gender Identity Not on file Sexual Orientation Not on file Last Filed Vital Signs Vital Sign Reading Time Taken Comments Blood Pressure 120/74 06/29/2023 3:41 PM SCRIP CLERK Pulse 81 06/29/2023 2:59 PM SCRIP CLERK Temperature 36.8 C (98.3 F) 06/29/2023 2:59 PM SCRIP CLERK Respiratory Rate 16 06/29/2023 2:59 PM SCRIP CLERK Oxygen Saturation 97% 06/29/2023 2:59 PM SCRIP CLERK Inhaled Oxygen Concentration - - Weight 105 kg (231 lb) 06/29/2023 2:59 PM SCRIP CLERK Height 175 cm (5' 8.9) 06/29/2023 2:59 PM SCRIP CLERK Body Mass Index 34.21 06/29/2023 2:59 PM SCRIP CLERK Plan of Treatment Health Maintenance Due Date Last Done Comments CT Colonography 1968 Colonoscopy 1968 Colorectal Cancer Screening 1968 FIT-DNA 1968 Sigmoidoscopy 1968 iFOBT 1968 COVID-19 Vaccine ( season) 2024 06/29/2023, 05/26/2021, 08/11/2020 Influenza Vaccine (Season Ended) 2025 06/29/2023, 02/28/2019, 02/28/2019, Additional history exists DTaP,Tdap,and Td Vaccines (2 - Td or Tdap) 08/10/2027 08/09/2017, 01/19/2007 Pneumococcal Vaccine: 50+ Years Completed 07/18/2023 Zoster Vaccines Completed 07/18/2023, 08/04/2021 HPV Vaccines Aged Out No longer eligi ble based on patient's age to complete this topic Insurance [employer] [place] Care Teams Low Pressure Boiler Operator Relationship Specialty Start Date End Date Freddy Hancock PA PCP - General Family Medicine 08/05/21
--- OUTSIDE RECORDS SUMMARY | 2024-11-09 23:23 | XMS_ITS | Clinical Summary ---
Author Organization [facility] Address [address] [place] [address] Care Team Providers Care Liquid Sugar Melter Name Role Phone Elsewhere, Pcp Primary Care Provider Unavailabl e Source Comments Patient records contain information from all sites at [facility]. For routine questions regarding patient records, call [phone] during business hours, M-F 8:00 AM - 5:00 PM Central Time. Record requests for emergency care only can be directed to [phone] at any time.[facility] Allergies Active Allergy Reactions Criticality Noted [...] tablet by mouth daily. 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 History reported by patient's significant other - unknown cause - diagnosed at [facility]. History reported by patient's significant other - unknown cause - diagnosed at [facility]. History reported by patient's significant other - unknown cause - diagnosed at [facility]. Migraine Headache 12/14/2010 Nephrolithiasis 12/14/2010 Restless Leg Syndrome 12/14/2010 Immunizations Immunization Administration Dates Next Due H1N1 All Forms 05/31/2009 H1N1 Inj 05/31/2009 Influenza TIV (IM) 05/31/2009 Influenza, Injectable, Quadrivalent 02/28/2019,0 06/17/2017,03/02/2015 Influenza, Unspecified 02/28/2019,06/17/2017 PPD Test 07/18/2021 RZV (SHINGRIX) 08/04/2021 SARS-COV-2 (COVID-19) - JANS SEN (J&J)(Discontinued) 08/11/2020 Tdap 08/09/2017 influenza trivalent vaccine (6 months and older)(PF) 05/31/2009 Social History Tobacco Use Types Packs/Day Years Used Date Smoking Tobacco: Some Days Cigarettes Tobacco Cessation:Ready to Q uit: Not Asked; Counseling Given: Not Answered Alcohol Use Standard Drinks/Week Comments Not Currently 0 (1 standard drink = 0.6 oz pur e alcohol) Sex and Gender Information Value Date Recorded [...] for Blood Pressure Check / Re-check 1968 Tobacco Cessation counseling 1968 Hepatitis B Vaccines (1 of 3 - 19+ 3-dose series) 10/25/1987 Pneumococcal vaccine (50+ years) (1 of 2 - PCV) 10/25/1987 Fasting Glucose for Diabetes Screening 12/08/2023 12/07/2022, 11/15/2022, 09/05/2022, Additional history exists Creatinine Level (Kidney Function Test) 12/13/2023 12/12/2022, 12/07/2022, 11/15/2022, Additional history exists Potassium Level 12/13/2023 12/12/2022, 07/2 , 11/15/2022, Additional history exists Sodium Level 12/13/2023 12/12/2022, 07/2 , 11/15/2022, Additional history exists COVID-19 Vaccine ( season) 2024 06/29/2023, 05/26/2021, 08/11/2020 Influenza Vaccine (#1) 2024 , 02/28/2019, 02/28/2019, Additional history exists Depression Screening (Annual PHQ-2) 05/21/2024 DTaP,Tdap,and Td Vaccines (2 - Td or Tdap) 08/10/2027 08/09/2017 Lipid (Cholesterol) Screening 09/06/2027 09/05/2022, 05/02/2021, 01/28/2020 Hepatitis B Screening Discontinued 06/29/2023, 022 Zoster Vaccines Completed 07/18/2023, 08/04/2021 IPV Vaccines [...] D.N.P. LAB BLOOD AD D-ON Final Result [facility] [address] [place] [id number], [facility] CN[facility] in [address] [address] from Last 3 Months or Most Recently Relevant to Health Maintenance Insurance [address] [place] [address] [place] Care Teams Liquid Sugar Melter Relationship Specialty Start Date End Date Elsewhere, Pcp PCP - General Internal Medicine 12/07/22
[2024-11-09] MEDS: FUROSEMIDE 10 MG/ML inj 40 MG IVP (23:30)
[2024-11-09 23:32] LABS: Albumin* 4.1 g/dL (3.3-5.0); Chloride* 105 mmol/L (96-114); Sodium* 140 mmol/L (135-149)
[2024-11-09 23:33] LABS: Potassium* 3.6 mmol/L (3.6-5.1)
[2024-11-09 23:35] LABS: Alanine Aminotransferase* 18 U/L (4-50); Alkaline Phosphatase* 94 U/L (40-150); Anion Gap 8 mEq/L (7-15); Aspartate Amino Transferase* 30 U/L (12-35); Bilirubin Total* 0.3 mg/dL (0.1-1.5); Blood Urea Nitrogen* 14 mg/dL (7-30); Carbon Dioxide* 27 mmol/L (20-32); Creatinine* 1.3 mg/dL (0.5-1.5); Est. Creatinine Clearance* 63.45; Estimated Glomerular Filt Rate 64 ml/min; Total Protein* 7.4 g/dL (6.0-8.3)
[2024-11-09 23:36] LABS: Glucose* 110 mg/dL (60-115); Magnesium* 2.2 mg/dL (1.5-2.6)
[2024-11-09 23:38] LABS: D Dimer Quantitative* 0.56 ug/ml (0.00-0.50)
--- NOTE | 2024-11-09 23:40 | ED.GENADULT ---
HPI - General Adult General Date Seen: 11/09/24 <Oliverio Gray DO - Last Filed: 11/11/24 11:10> Chief complaint: Shortness of Breath/Dyspnea <Oliverio Gray DO - Last Filed: 11/11/24 11:10> Stated complaint: SOB, tightness in the chest, cramps in legs <Oliverio Gray DO - Last Filed: 11/11/24 11:10> Time Seen by Provider: 11/09/24 22:46 <Oliverio Gray - Last Filed: 11/11/24 11:10> Source: patient <Oliverio Gray DO - Last Filed: 11/11/24 11:10> Mode of arrival: ambulatory <Oliverio Gray DO - Last Filed: 11/11/24 11:10> Limitations: no limitations <Oliverio Gray - Last Filed: 11/11/24 11:10> History of Present Illness HPI narrative: Patient is a 54-year-old male presenting to the emergency department for chest pain and shortness of breath. He states for the past few days he has been having the symptoms. He went to [place] [facility] last night and was told he was having worsening heart failure. They gave him Lasix helped his symptoms some he states he felt better at discharge but still not back to normal. States he took his increased Lasix dose as they recommended today. He was previously taking 20 mg and after last night he is now taking 40 mg a day. He states he feels like there is a tightness in his chest. He has a history of asthma is a former smoker but states this is not feel like his previous asthma exacerbations. He has the sensation like his chest and legs are full of fluid. States he can not lay down flat as it makes him short of breath. Symptoms do improve when he has his head elevated. Does have history of cardiomyopathy and is concerned about that. He had a non concerning chest x-ray done at [place]. Denies fevers, chills, abdominal pain. Has been having a dry cough <Oliverio Gray - Last Filed: 11/11/24 11:10> Related Data Home medications: Home Medications ?Medication ?Instructions ?Recorded ?Confirmed amlodipine 10 mg tablet 10 mg PO DAILY 02/22/24 11/09/24 atorvastatin 40 mg tablet 40 mg PO DAILY 02/22/24 11/09/24 carvedilol 12.5 mg tablet 25 mg PO DAILY 02/22/24 11/09/24 esomeprazole magnesium 40 mg 40 mg PO DAILY 02/22/24 11/09/24 capsule,delayed release famotidine 40 mg tablet 40 mg PO DAILY 02/22/24 11/09/24 fluoxetine 40 mg capsule 40 mg PO DAILY 02/22/24 11/09/24 furosemide 20 mg tablet 20 mg PO DAILY 02/22/24 11/09/24 hydroxyzine HCl 50 mg tablet 50 mg PO BID 02/22/24 11/09/24 spironolactone 25 mg tablet 25 mg PO DAILY 02/22/24 11/09/24 gabapentin 300 mg capsule 300 mg PO 3XD 07/18/24 11/09/24 pramipexole 2.25 mg 2.25 mg PO DAILY 07/18/24 11/09/24 tablet,extended release 24 hr meloxicam 15 mg tablet 15 mg PO DAILY 11/09/24 11/09/24 Previous Rx's ?Medication ?Instructions ?Recorded ketorolac 10 mg tablet 10 mg PO Q8H 5 days #15 tabs 07/18/24 <Oliverio Gray DO - Last Filed: 11/11/24 11:10> Allergies/adverse reactions: Allergies Allergy/AdvReac Type Severity Reaction Status Date / Time bee venom protein (honey bee) Allergy Verified 11/09/24 22:42 spider venom Allergy Verified 11/09/24 22:42 sumatriptan Allergy Verified 11/09/24 22:42 <Oliverio Gray DO - Last Filed: 11/11/24 11:10> Review of Systems Status of ROS: Reports: 10 or more systems reviewed and unremarkable except as noted in History and below <Oliverio Gray DO - Last Filed: 11/11/24 11:10> [facility] Medical History: Medical History Cardiomyopathy ?I42.9 - Cardiomyopathy, unspecified (ICD-10) <Oliverio Gray DO - Last Filed: 11/11/24 11:10> Social History: Social History Smoking Status: Current some day smoker How often do you have a drink containing alcohol: never AUDIT-C Alcohol total score: 0 Non-prescribed substance use: marijuana (any form) <Oliverio Gray DO - Last Filed: 11/11/24 11:10> Exam Narrative: Exam Narrative: Const: Well-nourished, Well-developed, in mild distress Eyes: PERRL, no conjunctival injection, and symmetrical lids HENT: Atraumatic external nose and ears. Moist mucous membranes. Neck: Symmetric, trachea midline, No thyromegaly. CVS: RRR, No murmurs or gallops. Peripheral pulses 2+ and equal in all extremities. No lower extremity pitting edema RESP: Unlabored respiratory effort. Clear to auscultation bilaterally. GI: Nontender/Nondistended, No rebound or guarding. MSK:Extremities w/o deformity, Normal Active ROM Skin: Warm, Dry. No rashes or lesions. Neuro: Normal Muscle tone, No focal neurological deficits. Psych: Awake, Alert, & Oriented x3. Appropriate mood and affect. <Oliverio Gray DO - Last Filed: 11/11/24 11:10> Const: Vital Signs, click to edit/add: Vital Signs - 24 hr 11/09/24 22:38 11/09/24 23:20 11/10/24 00:11 Temperature 97.4 F L Pulse Rate 87 60 Pulse Rate [Pulse Oximeter] 71 Respiratory Rate 16 18 23 Blood Pressure 152/115 H Blood Pressure [Ri ght Upper Arm] 152/100 H Pulse Oximetry 98 96 97 Oxygen Delivery Me thod Room Air Room Air 11/10/24 00:15 11/10/24 00:50 11/10/24 00:52 Temperature Pulse Rate 62 65 79 Pulse Rate [Pulse Oximeter] Respiratory Rate 18 Blood Pressure 140/103 H Blood Pressure [Ri ght Upper Arm] Pulse Oximetry 99 100 100 Oxygen Delivery Me thod Room Air <Oliverio Gray DO - Last Filed: 11/11/24 11:10> Vital Signs, click to edit/add: Vital Signs - 24 hr 11/09/24 22:38 11/09/24 23:20 11/10/24 00:11 Temperature 97.4 F L Pulse Rate 87 60 Pulse Rate [Pulse Oximeter] 71 Respiratory Rate 16 18 23 Blood Pressure 152/115 H Blood Pressure [Ri ght Upper Arm] 152/100 H Pulse Oximetry 98 96 97 Oxygen Delivery Me thod Room Air Room Air 11/10/24 00:15 11/10/24 00:50 11/10/24 00:52 Temperature Pulse Rate 62 65 79 Pulse Rate [Pulse Oximeter] Respiratory Rate 18 Blood Pressure 140/103 H Blood Pressure [Ri ght Upper Arm] Pulse Oximetry 99 100 100 Oxygen Delivery Me thod Room Air <Sheila Duckworth MD - Last Filed: 11/10/24 01:04> Course Course ED Course: Dr. Duckworth- I inherited care of patient near completion of his workup for chest pain and shortness of breath. Patient with recent evaluation at outside hospital, was started on increased doses of Lasix. Labs have improved in comparison since that intervention. CT scan of the chest was performed and preliminary results will to be normal. No pericardial effusion, pleural effusion, infiltrate, etc.. Outgoing physician reviewed these results with patient and I was to follow up on the final report to ensure that there was no discrepancy or need to interchange agent. Patient received an extra dose of IV Lasix here in the ED and was counseled on continuing on this increased dose that was started yesterday with outpatient primary care follow-up in a few days. CT shows cardiomyopathy which is known, no other major discrepancies other than some subcentimeter pulmonary nodules which do not meet further workup criteria acutely. Vitals have remained stable, he is satting 100% on room air. I agree with the plan to discharge. <Sheila Duckworth MD - Last Filed: 11/10/24 01:04> Vital Signs Vital signs: Initial Vital Signs Temperature 97.4 F L 11/09/24 22:38 Temperature Source Temporal Artery Scan 11/09/24 22:38 Pulse Rate 71 11/09/24 22:38 Respiratory Rate 16 11/09/24 22:38 Blood Pressure 152/100 H 11/09/24 22:38 Blood Pressure Mean 117 H 11/09/24 22:38 Pulse Oximetry 98 11/09/24 22:38 Oxygen Delivery Method Room Air 11/09/24 22:38 Vital Signs Temperature 97.4 F L 11/09/24 22:38 Pulse Rate 71 11/09/24 22:38 Respiratory Rate 16 11/09/24 22:38 Blood Pressure 152/100 H 11/09/24 22:38 Pulse Oximetry 98 11/09/24 22:38 Oxygen Delivery Method Room Air 11/09/24 22:38 Temperature 97.4 F L 11/09/24 22:38 Pulse Rate 79 11/10/24 00:52 Respiratory Rate 18 11/10/24 00:52 Blood Pressure 140/103 H 11/10/24 00:52 Pulse Oximetry 100 11/10/24 00:52 Oxygen Delivery Method Room Air 11/10/24 00:52 <Oliverio Gray DO - Last Filed: 11/11/24 11:10> Initial Vital Signs Temperature 97.4 F L 11/09/24 22:38 Temperature Source Temporal Artery Scan 11/09/24 22:38 Pulse Rate 71 11/09/24 22:38 Respiratory Rate 16 11/09/24 22:38 Blood Pressure 152/100 H 11/09/24 22:38 Blood Pressure Mean 117 H 11/09/24 22:38 Pulse Oximetry 98 11/09/24 22:38 Oxygen Delivery Method Room Air 11/09/24 22:38 Vital Signs Temperature 97.4 F L 11/09/24 22:38 Pulse Rate 71 11/09/24 22:38 Respiratory Rate 16 11/09/24 22:38 Blood Pressure 152/100 H 11/09/24 22:38 Pulse Oximetry 98 11/09/24 22:38 Oxygen Delivery Method Room Air 11/09/24 22:38 Temperature 97.4 F L 11/09/24 22:38 Pulse Rate 79 11/10/24 00:52 Respiratory Rate 18 11/10/24 00:52 Blood Pressure 140/103 H 11/10/24 00:52 Pulse Oximetry 100 11/10/24 00:52 Oxygen Delivery Method Room Air 11/10/24 00:52 <Sheila Duckworth MD - Last Filed: 11/10/24 01:04> Medications Administered Medications: Discontinued Medications Generic Name Dose Route Start Last Admin Trade Name Freq PRN Reason Stop Dose Admin Furosemide 40 mg 11/09/24 23:04 11/09/24 23:30 Furosemide 10 Mg/Ml Inj IVP 11/09/24 23:05 40 mg ONCE ONE Administration <Oliverio Gray DO - Last Filed: 11/11/24 11:10> Discontinued Medications Generic Name Dose Route Start Last Admin Trade Name Angelo PRN Reason Stop Dose Admin Furosemide 40 mg 11/09/24 23:04 11/09/24 23:30 Furosemide 10 Mg/Ml Inj IVP 11/09/24 23:05 40 mg ONCE ONE Administration <Sheila Duckworth MD - Last Filed: 11/10/24 01:04> Medical Decision Making [facility] Narrative Medical decision making narrative: Patient is a 54-year-old male presenting for chest pain and shortness of breath. The differential diagnosis of shortness of breath is broad and includes common etiologies such as COPD, asthma, pneumonia, viral syndrome, etc. More serious etiologies considered include PE, CHF, coronary artery disease, pneumothorax, aortic dissection, aortic aneurysm. Will do a D-dimer to look for signs of PE. EKG and troponin order to look for signs of ACS or other cardiac abnormalities. Will hold off and do a chest x-ray as a panic doing a chest CT either way since he just had a chest x-ray done. My concern for aortic dissection or aortic aneurysm is relatively low at this time. Will give him another dose of Lasix to see if that helps. CBC the shows hemoglobin is down 3 points from April 2024 but is up compared to lab work done at [place] last night. Age adjusted D-dimer within normal limits. VBG shows no concerning findings. CMP shows no concerning findings. His BNP is actually improved significantly from 1573 yesterday to 693 today. Troponin within normal limits. Will do a chest CT for better evaluation. <Oliverio Gray DO - Last Filed: 11/11/24 11:10> Lab Data Labs: Lab Results 11/09/24 Range/Units 23:15 WBC 5.45 (4.50-11.00) K/uL RBC 5.21 (4.30-5.90) m/uL Hgb 11.4 L (13.5-17.5) gm/dL Hct 38.3 (37.0-53.0) % MCV 74 L (80-100) fL MCH 22 L (26-34) pg MCHC 30 L (32-36) gm/dL RDW Coeff of Adrianna 21.0 H (11.5-15.5) % Plt Count 263 (140-440) K/uL Neut % (Auto) 41.3 L (42.0-72.0) % Lymph % (Auto) 43.1 (20-44) % [place] % (Auto) 9.7 (0.0-11.0) % Eos % (Auto) 5.1 (0.0-7.0) % Baso % (Auto) 0.6 (0.0-3.0) % Neut # (Auto) 2.30 (1.7-7.0) K/uL Lymph # (Auto) 2.35 (0.90-2.90) K/uL [place] # (Auto) 0.50 (0.00-0.90) K/UL Eos # (Auto) 0.28 (0.00-0.50) K/uL Baso # (Auto) 0.03 (0.00-0.30) K/uL Abs Immat Gran (auto) 0.01 (0.00-0.30) K/uL Imm/Tot Granulo (auto) 0.2 % D-Dimer Quant (PE/DVT) 0.56 H (0.00-0.50) ug/ml VBG pH 7.441 H (7.32-7.43) VBG pCO2 42 (40-50) mmHG VBG pO2 56.6 H (25-47) mmHG VBG HCO3 28 (21-28) mmol/L Sodium 140 (135-149) mmol/L Potassium 3.6 (3.6-5.1) mmol/L Chloride 105 (96-114) mmol/L Carbon Dioxide 27 (20-32) mmol/L Anion Gap 8 (7-15) mEq/L BUN 14 (7-30) mg/dL Creatinine 1.3 (0.5-1.5) mg/dL Estimated Creat Clear 63.45 Estimated GFR 64 ml/min Glucose 110 (60-115) mg/dL Calcium 9.0 (8.4-10.6) mg/dL Magnesium 2.2 (1.5-2.6) mg/dL Total Bilirubin 0.3 (0.1-1.5) mg/dL AST 30 (12-35) U/L ALT 18 (4-50) U/L Alkaline Phosphatase 94 (40-150) U/L Troponin I < 0.01 (0.01-0.04) ng/mL NT-Pro-B Natriuret Pep 693 H (See Note) pg/mL Total Protein 7.4 (6.0-8.3) g/dL Albumin 4.1 (3.3-5.0) g/dL <Oliverio Gray, DO - Last Filed: 11/11/24 11:10> Lab Results 11/09/24 Range/Units 23:15 WBC 5.45 (4.50-11.00) K/uL RBC 5.21 (4.30-5.90) m/uL Hgb 11.4 L (13.5-17.5) gm/dL Hct 38.3 (37.0-53.0) % MCV 74 L (80-100) fL MCH 22 L (26-34) pg MCHC 30 L (32-36) gm/dL RDW Coeff of Adrianna 21.0 H (11.5-15.5) % Plt Count 263 (140-440) K/uL Neut % (Auto) 41.3 L (42.0-72.0) % Lymph % (Auto) 43.1 (20-44) % [place] % (Auto) 9.7 (0.0-11.0) % Eos % (Auto) 5.1 (0.0-7.0) % Baso % (Auto) 0.6 (0.0-3.0) % Neut # (Auto) 2.30 (1.7-7.0) K/uL Lymph # (Auto) 2.35 (0.90-2.90) K/uL [place] # (Auto) 0.50 (0.00-0.90) K/UL Eos # (Auto) 0.28 (0.00-0.50) K/uL Baso # (Auto) 0.03 (0.00-0.30) K/uL Abs Immat Gran (auto) 0.01 (0.00-0.30) K/uL Imm/Tot Granulo (auto) 0.2 % D-Dimer Quant (PE/DVT) 0.56 H (0.00-0.50) ug/ml VBG pH 7.441 H (7.32-7.43) VBG pCO2 42 (40-50) mmHG VBG pO2 56.6 H (25-47) mmHG VBG HCO3 28 (21-28) mmol/L Sodium 140 (135-149) mmol/L Potassium 3.6 (3.6-5.1) mmol/L Chloride 105 (96-114) mmol/L Carbon Dioxide 27 (20-32) mmol/L Anion Gap 8 (7-15) mEq/L BUN 14 (7-30) mg/dL Creatinine 1.3 (0.5-1.5) mg/dL Estimated Creat Clear 63.45 Estimated GFR 64 ml/min Glucose 110 (60-115) mg/dL Calcium 9.0 (8.4-10.6) mg/dL Magnesium 2.2 (1.5-2.6) mg/dL Total Bilirubin 0.3 (0.1-1.5) mg/dL AST 30 (12-35) U/L ALT 18 (4-50) U/L Alkaline Phosphatase 94 (40-150) U/L Troponin I < 0.01 (0.01-0.04) ng/mL NT-Pro-B Natriuret Pep 693 H (See Note) pg/mL Total Protein 7.4 (6.0-8.3) g/dL Albumin 4.1 (3.3-5.0) g/dL <Sheila Duckworth MD - Last Filed: 11/10/24 01:04> Imaging Data CT scan - chest: Attestation: I have reviewed the pertinent imaging results. <Sheila Duckworth MD - Last Filed: 11/10/24 01:04> Radiologist's impression: Impression: 1. Scattered pulmonary nodules measure up to [address] millimeters[address] Follow-up CT in 12 months recommended. 2. Although evaluation is limited on this noncontrast study, suspect significant dilation of the left ventricle and atrium. Correlation for heart failure recommended. No findings of significant pulmonary edema. Please note that all CT scans at this facility use dose modulation, iterative reconstruction, and/or weight-based dosing when appropriate to reduce radiation dose to as low as reasonably achievable. Dictated by Fernando Song MD @ 11/10/2024 12:45:10 AM (Electronic Signature) <Sheila Duckworth MD - Last Filed: 11/10/24 01:04> ECG Data Attestation: I personally reviewed and interpreted this ECG as follows: <Oliverio Gray - Last Filed: 11/11/24 11:10> Interpretation: Normal sinus rhythm with a rate of 60 beats per minute, normal intervals, normal axis, ST or T-wave abnormalities. Does seem to meet voltage criteria for LVH. Appears similar to previous EKGs on file <Oliverio Gray DO - Last Filed: 11/11/24 11:10> Discharge Plan Discharge Clinical Impression: Breath shortness <Oliverio Gray DO - Last Filed: 11/11/24 11:10> Patient Disposition: Home, Self-Care <Oliverio Gray DO - Last Filed: 11/11/24 11:10> Condition: Stable <Oliverio Gray DO - Last Filed: 11/11/24 11:10> Instructions: Shortness of Breath (ED) <Oliverio Gray DO - Last Filed: 11/11/24 11:10> Additional Instructions: We do not see any concerning abnormalities today. All your lab work is actually much improved compared to last night. If these symptoms persist I do recommend following up with her primary care provider tomorrow. Also continue take the furosemide 40 mg daily. <Oliverio Gray DO - Last Filed: 11/11/24 11:10> Prescriptions: No Action gabapentin 300 mg capsule 300 mg PO 3XD pramipexole 2.25 mg tablet extended release 24 hr 2.25 mg PO DAILY ketorolac 10 mg tablet 10 mg PO Q8H 5 Days Qty: 15 0RF fluoxetine 40 mg capsule 40 mg PO DAILY atorvastatin 40 mg tablet 40 mg PO DAILY carvedilol 12.5 mg tablet 25 mg PO DAILY famotidine 40 mg tablet 40 mg PO DAILY hydroxyzine HCl 50 mg tablet 50 mg PO BID spironolactone 25 mg tablet 25 mg PO DAILY amlodipine 10 mg tablet 10 mg PO DAILY esomeprazole magnesium 40 mg capsule,delayed release(DR/EC) 40 mg PO DAILY furosemide 20 mg tablet 20 mg PO DAILY meloxicam 15 mg tablet 15 mg PO DAILY <Oliverio Gray DO - Last Filed: 11/11/24 11:10> Follow Up/Referrals: Provider,Not a Local [Primary Care Provider, Family Practice] <Oliverio Gray DO - Last Filed: 11/11/24 11:10> Stand Alone Forms: MyHealth Info Instructions <Oliverio Gray DO - Last Filed: 11/11/24 11:10>
[2024-11-09 23:48] LABS: NT Pro B Type NatriureticPept* 693 pg/mL (See Note); Troponin I* < 0.01 ng/mL (0.01-0.04)
--- NOTE | 2024-11-09 23:49 | CRLHL7_ITS ---
For Patients: As a result of the Century Cures Act, medical imaging exams and procedure reports are released immediately into your electronic medical record. You may view this report before your referring provider. If you have questions, please contact your health care provider. Indication: Chest pain, shortness of breath Technique: Noncontrast CT of the chest with multiplanar reformats. Comparison: Chest radiograph performed 04/26/2024 Findings: Lungs: No consolidation. No effusion. No pneumothorax. Scattered pulmonary nodules are noted measuring up to 4 millimeters. Areas of atelectasis and/or scarring noted. Mediastinum: Although evaluation is limited on this noncontrast study, suspect dilation of the left ventricle and atrium. No significant calcified coronary arterial atherosclerosis appreciated. Lymph nodes: No gross lymphadenopathy. Upper abdomen: No acute abnormality appreciated. Soft tissues: No acute abnormality appreciated. Bones: No acute abnormality appreciated. Mild spondylosis. Impression: 1. Scattered pulmonary nodules measure up to 4 millimeters. Follow-up CT in 12 months recommended. 2. Although evaluation is limited on this noncontrast study, suspect significant dilation of the left ventricle and atrium. Correlation for heart failure recommended. No findings of significant pulmonary edema. Please note that all CT scans at this facility use dose modulation, iterative reconstruction, and/or weight-based dosing when appropriate to reduce radiation dose to as low as reasonably achievable. Dictated by Fernando Song MD @ 11/10/2024 12:45:10 AM (Electronically Signed)
[2024-11-10 00:11] VITALS: PULSE 60; RESP 23; O2SAT 97
[2024-11-10 00:15] VITALS: PULSE 62; O2SAT 99
[2024-11-10 00:50] VITALS: PULSE 65; O2SAT 100
[2024-11-10 00:52] VITALS: BP 140/103; PULSE 79; RESP 18; O2SAT 100
== END 2024-11-10 00:57 | disposition home or self-care (01) ==
PROVIDERS: Emergency Provider Student in an Organized Health Care Education/Training Program
DX: R06.02 Shortness of breath (principal); R07.9 Chest pain, unspecified
CPT/HCPCS: 36415; 71250; 80053; 82803; 83735; 83880; 84484; 85025; 85379; 93005; 96374; 99284; 99285; J1938